=== PATIENT | male | born 1995 | race African-American/Black ===

== ENCOUNTER 2018-03-28 10:59 | Emergency (ER) | payer SELFPAY ==
--- NOTE | 2018-03-28 13:43 | EDPHYS ---
Physician Documentation [facility] Name: Luis Machado Age: 22 yrs Sex: Male : 1995 Arrival Date: 03/28/2018 Time: 11:01 Bed 12 Private MD: ED Physician Bandar Grimm HPI: 03/28 12:37 This 22 yrs old Black Male presents to ER via Ambulatory with complaints of Cough, kb Congestion. 12:37 The patient or guardian reports cough, that is intermittent, described as mild, with no kb sputum. Onset: The symptoms/episode began/occurred 3 day(s) ago. Severity of symptoms: At their worst the symptoms were mild, moderate, in the emergency department the symptoms are unchanged. Modifying factors: The symptoms are alleviated by nothing, the symptoms are aggravated by nothing. Associated signs and symptoms: Pertinent positives: rhinorrhea, Pertinent negatives: chest pain, diarrhea, ear ache, fever, nausea, sore throat, vomiting. The patient has not experienced similar symptoms in the past. The patient has not recently seen a physician. Historical: - Allergies: 11:18 No Known Allergies; aj1 - Home Meds: 11:18 None [Active]; aj1 - PMHx: 11:18 None; aj1 - PSHx: 11:18 None; aj1 - Immunization history:: Flu vaccine is not up to date. - Social history:: Smoking status: Patient/guardian denies using tobacco. - Ebola Screening: : Patient denies travel to an Ebola-affected area in the 21 days before illness onset. ROS: 12:37 Constitutional: Negative for fever, chills, and weight loss, Cardiovascular: Negative kb for chest pain, palpitations, and edema, Abdomen/GI: Negative for abdominal pain, nausea, vomiting, diarrhea, and constipation, Back: Negative for injury and pain, : Negative for injury, bleeding, discharge, and swelling, MS/Extremity: Negative for injury and deformity, Skin: Negative for injury, rash, and discoloration, Neuro: Negative for headache, weakness, numbness, tingling, and seizure. 12:37 ENT: Positive for rhinorrhea, sinus congestion. 12:37 Respiratory: Positive for cough, Negative for dyspnea on exertion, hemoptysis, orthopnea, pleurisy, shortness of breath, sputum production, wheezing. Exam: 12:37 Constitutional: This is a well developed, well nourished patient who is awake, alert, kb and in no acute distress. Head/Face: Normocephalic, atraumatic. ENT: Nares patent. No nasal discharge, no septal abnormalities noted. Tympanic membranes are normal and external auditory canals are clear. Oropharynx with no redness, swelling, or masses, exudates, or evidence of obstruction, uvula midline. Mucous membranes moist. Neck: Trachea midline, no thyromegaly or masses palpated, and no cervical lymphadenopathy. Supple, full range of motion without nuchal rigidity, or vertebral point tenderness. No Meningismus. Chest/axilla: Normal chest wall appearance and motion. Nontender with no deformity. No lesions are appreciated. Cardiovascular: Regular rate and rhythm with a normal S1 and S2. No gallops, murmurs, or rubs. Normal PMI, no JVD. No pulse deficits. Respiratory: Lungs have equal breath sounds bilaterally, clear to auscultation and percussion. No rales, rhonchi or wheezes noted. No increased work of breathing, no retractions or nasal flaring. Abdomen/GI: Soft, non-tender, with normal bowel sounds. No distension or tympany. No guarding or rebound. No evidence of tenderness throughout. Skin: Warm, dry with normal turgor. Normal color with no rashes, no lesions, and no evidence of cellulitis. MS/ Extremity: Pulses equal, no cyanosis. Neurovascular intact. Full, normal range of motion. Neuro: Awake and alert, GCS 15, oriented to person, place, time, and situation. Cranial nerves II-XII grossly intact. Motor strength 5/5 in all extremities. Sensory grossly intact. Cerebellar exam normal. Normal gait. Vital Signs: 11:18 BP 109 / 80; Pulse 78; Resp 18; Temp 97.3; Pulse Ox 100% on R/A; Weight 79.38 kg (R); aj1 Height 5 ft. 8 in. (172.72 cm) (R); Pain 0/10; 11:18 Body Mass Index 26.61 (79.38 kg, 172.72 cm) aj1 MDM: 11:20 Patient medically screened. kb 12:36 Data reviewed: vital signs, nurses notes. Data interpreted: Pulse oximetry: on room air kb is 100 %. Interpretation: normal. Counseling: I had a detailed discussion with the patient and/or guardian regarding: the historical points, exam findings, and any diagnostic results supporting the discharge/admit diagnosis, lab results, the need for outpatient follow up, a family practitioner, to return to the emergency department if symptoms worsen or persist or if there are any questions or concerns that arise at home. 03/28 11:20 Order name: Flu; Complete Time: 12:12 kb 03/28 11:20 Order name: Strep; Complete Time: 12:12 kb 03/28 12:09 Order name: Throat Culture EDMS Administered Medications: No medications were administered Disposition: 13:39 Co-signature as Attending Physician, Bandar Grimm MD. rn Disposition: 03/28/18 12:36 Discharged to Home. Impression: Acute upper respiratory infection, unspecified. - Condition is Stable. - Discharge Instructions: Upper Respiratory Infection, Adult, [id number]. - Medication Reconciliation Form, Thank You Letter, Antibiotic Education, Prescription Opioid Use form. - Follow up: Emergency Department; When: As needed; Reason: Worsening of condition. Follow up: Private Physician; When: 2 - 3 days; Reason: Recheck today's complaints, Continuance of care, Re-evaluation by your physician. Signatures: Dispatcher [employer] EDMS Kera Holcomb, ORACLE DATABASE MANAGER-C ORACLE DATABASE MANAGER-Glynnb Maribeth Barnett, RN RN aj1 Bandar Grimm MD MD rn Baxter, Heather, RN RN Corrections: (The following items were deleted from the chart) 12:55 12:36 03/28/2018 12:36 Discharged to Home. Impression: Acute upper respiratory hb infection, unspecified. Condition is Stable. Forms are Medication Reconciliation Form, Thank You Letter, Antibiotic Education, Prescription Opioid Use. Follow up: Emergency Department; When: As needed; Reason: Worsening of condition. Follow up: Private Physician; When: 2 - 3 days; Reason: Recheck today's complaints, Continuance of care, Re-evaluation by your physician. kb
--- NOTE | 2018-03-28 13:43 | ER ---
Nurse's Notes [facility] Name: Luis Machado Age: 22 yrs Sex: Male : 1995 Arrival Date: 03/28/2018 Time: 11:01 Bed 12 Private MD: Diagnosis: Acute upper respiratory infection, unspecified Presentation: 03/28 11:17 Presenting complaint: Patient states: For the past 3 days he has had cough and aj1 congestion. Reports that he wakes up sweating a lot, but has not checked his temperature. Transition of care: patient was not received from another setting of care. Onset of symptoms was March 25, 2018. Risk Assessment: Do you want to hurt yourself or someone else? Patient reports no desire to harm self or others. Initial Sepsis Screen: Does the patient meet any 2 criteria? No. Patient's initial sepsis screen is negative. Does the patient have a suspected source of infection? Yes: Productive cough/pneumonia. Care prior to arrival: None. 11:17 Method Of Arrival: Ambulatory aj1 11:17 Acuity: NOAH 4 aj1 Triage Assessment: 11:18 General: Appears in no apparent distress. comfortable, Behavior is calm, cooperative, aj1 appropriate for age. Pain: Denies pain. EENT: Reports nasal congestion nasal discharge. Neuro: Level of Consciousness is awake, alert, obeys commands. Cardiovascular: Patient's skin is warm and dry. Respiratory: Reports cough that is persistent Airway is compromised Respiratory effort is even, unlabored, Respiratory pattern is regular, symmetrical, Breath sounds are clear bilaterally. Historical: - Allergies: 11:18 No Known Allergies; aj1 - Home Meds: 11:18 None [Active]; aj1 - PMHx: 11:18 None; aj1 - PSHx: 11:18 None; aj1 - Immunization history:: Flu vaccine is not up to date. - Social history:: Smoking status: Patient/guardian denies using tobacco. - Ebola Screening: : Patient denies travel to an Ebola-affected area in the 21 days before illness onset. Screenin:58 Abuse screen: Denies threats or abuse. Denies injuries from another. Nutritional aj1 screening: No deficits noted. Tuberculosis screening: No symptoms or risk factors identified. Assessment: 11:58 General: Appears in no apparent distress. comfortable, Behavior is calm, cooperative, aj1 appropriate for age. Neuro: Level of Consciousness is awake, alert, obeys commands. Cardiovascular: Heart tones S1 S2 present Patient's skin is warm and dry. Respiratory: Reports cough that is persistent Airway is patent Respiratory effort is even, unlabored, Respiratory pattern is regular, symmetrical, Breath sounds are clear bilaterally. Denies shortness of breath. GI: No signs and/or symptoms were reported involving the gastrointestinal system. : No signs and/or symptoms were reported regarding the genitourinary system. EENT: No signs and/or symptoms were reported regarding the EENT system. Derm: No signs and/or symptoms reported regarding the dermatologic system. Skin is pink, warm \T\ dry. normal. Musculoskeletal: No signs and/or symptoms reported regarding the musculoskeletal system. Circulation, motion, and sensation intact. Vital Signs: 11:18 BP 109 / 80; Pulse 78; Resp 18; Temp 97.3; Pulse Ox 100% on R/A; Weight 79.38 kg (R); aj1 Height 5 ft. 8 in. (172.72 cm) (R); Pain 0/10; 11:18 Body Mass Index 26.61 (79.38 kg, 172.72 cm) aj ED Course: 11:01 Patient arrived in ED. as 11:10 [facility] Holcomb [facility]C [facility] kb 11:10 Bandar Grimm MD is Attending Physician. kb 11:18 Triage completed. aj1 11:18 Arm band placed on Patient placed in waiting room, Patient notified of wait time. aj1 11:58 Patient has correct armband on for positive identification. Bed in low position. Call aj1 light in reach. Side rails up X 1. 11:58 No provider procedures requiring assistance completed. Flu and/or RSV swab sent to lab. aj1 Strep swab sent to lab. 12:05 Elizabeth Marquis, RN is Primary Nurse. hb 12:55 Patient did not have IV access during this emergency room visit. hb Administered Medications: No medications were administered Outcome: 12:36 Discharge ordered by . kb 12:54 Discharged to home ambulatory, with family. hb 12:54 Condition: stable 12:54 Discharge instructions given to patient, family, Instructed on discharge instructions, follow up and referral plans. medication usage, Demonstrated understanding of instructions, follow-up care, medications. 12:55 Patient left the ED. hb Signatures: Kera Holcomb, ADELEC SARAH-Maribeth Morales RN RN aj1 Fabby Medina as Elizabeth Marquis, RN RN hb
== END 2018-03-28 12:55 | disposition home or self-care (01) ==
LOC: ER 10:59
DX: J06.9 Acute upper respiratory infection, unspecified (principal)
CPT/HCPCS: 87070; 87081; 87804; 99283

== ENCOUNTER 2019-02-21 08:11 | Emergency (ER) | payer SELFPAY ==
--- NOTE | 2019-02-21 09:08 | EDPHYS ---
Physician Documentation [facility] Name: Luis Machado Age: 23 yrs Sex: Male : 1995 Arrival Date: 02/21/2019 Time: 08:14 Bed 20 Private MD: ED Physician Puneet Aleman HPI: 02/21 09:13 This 23 yrs old Black Male presents to ER via Ambulatory with complaints of Toothache. snw 09:13 The patient presents with pain. The problem is located in the upper right first molar snw (#3). Onset: The symptoms/episode began/occurred gradually, 2 week(s) ago, and became worse and became persistent. Duration: The symptoms are continuous, and are steadily getting worse. Associated signs and symptoms: The patient has no apparent associated signs or symptoms. Severity of symptoms: At their worst the symptoms were moderate. It is unknown whether or not the patient has had similar symptoms in the past. The patient has not recently seen a physician. Historical: - Allergies: 08:24 No Known Allergies; aa5 - Home Meds: 08:24 None [Active]; aa5 - PMHx: 08:24 None; aa5 - PSHx: 08:24 None; aa5 - Immunization history:: Adult Immunizations up to date. - Social history:: Smoking status: Patient/guardian denies using tobacco. - Ebola Screening: : No symptoms or risks identified at this time. ROS: 09:13 Constitutional: Negative for fever, chills, and weight loss, Eyes: Negative for injury, snw pain, redness, and discharge, Neck: Negative for injury, pain, and swelling, Cardiovascular: Negative for chest pain, palpitations, and edema, Respiratory: Negative for shortness of breath, cough, wheezing, and pleuritic chest pain, Abdomen/GI: Negative for abdominal pain, nausea, vomiting, diarrhea, and constipation, Back: Negative for injury and pain, : Negative for injury, bleeding, discharge, and swelling, MS/Extremity: Negative for injury and deformity, Skin: Negative for injury, rash, and discoloration, Neuro: Negative for headache, weakness, numbness, tingling, and seizure, Psych: Negative for depression, anxiety, suicide ideation, homicidal ideation, and hallucinations. 09:13 ENT: Positive for dental pain. Exam: 09:12 Constitutional: This is a well developed, well nourished patient who is awake, alert, snw and in no acute distress. Head/Face: Normocephalic, atraumatic. Eyes: Pupils equal round and reactive to light, extra-ocular motions intact. Lids and lashes normal. Conjunctiva and sclera are non-icteric and not injected. Cornea within normal limits. Periorbital areas with no swelling, redness, or edema. Neck: Trachea midline, no thyromegaly or masses palpated, and no cervical lymphadenopathy. Supple, full range of motion without nuchal rigidity, or vertebral point tenderness. No Meningismus. Chest/axilla: Normal chest wall appearance and motion. Nontender with no deformity. No lesions are appreciated. Cardiovascular: Regular rate and rhythm with a normal S1 and S2. No gallops, murmurs, or rubs. Normal PMI, no JVD. No pulse deficits. Respiratory: Lungs have equal breath sounds bilaterally, clear to auscultation and percussion. No rales, rhonchi or wheezes noted. No increased work of breathing, no retractions or nasal flaring. Abdomen/GI: Soft, non-tender, with normal bowel sounds. No distension or tympany. No guarding or rebound. No evidence of tenderness throughout. Back: No spinal tenderness. No costovertebral tenderness. Full range of motion. Skin: Warm, dry with normal turgor. Normal color with no rashes, no lesions, and no evidence of cellulitis. MS/ Extremity: Pulses equal, no cyanosis. Neurovascular intact. Full, normal range of motion. Neuro: Awake and alert, GCS 15, oriented to person, place, time, and situation. Cranial nerves II-XII grossly intact. Motor strength 5/5 in all extremities. Sensory grossly intact. Cerebellar exam normal. Normal gait. Psych: Awake, alert, with orientation to person, place and time. Behavior, mood, and affect are within normal limits. 09:12 ENT: External ear(s): are unremarkable, Ear canal(s): are normal, TM's: are normal, Nose: is normal, Mouth: is normal, Posterior pharynx: is normal, Dental exam: pain, that is moderate, specifically in the upper right first molar (#3). Vital Signs: 08:25 BP 140 / 95; Pulse 75; Resp 16 S; Temp 98.5(O); Pulse Ox 96% on R/A; Weight 77.11 kg aa5 (R); Height 5 ft. 8 in. (172.72 cm) (R); Pain 8/10; 08:25 Body Mass Index 25.85 (77.11 kg, 172.72 cm) aa5 MDM: 08:55 Patient medically screened. snw 09:08 Data reviewed: vital signs, nurses notes. Data interpreted: Pulse oximetry: on room air snw is 96 %. Interpretation: normal. Counseling: I had a detailed discussion with the patient and/or guardian regarding: the historical points, exam findings, and any diagnostic results supporting the discharge/admit diagnosis, the presence of at least one elevated blood pressure reading (>120/80) during this emergency department visit, the need for outpatient follow up, to return to the emergency department if symptoms worsen or persist or if there are any questions or concerns that arise at home. Special discussion: I have referred the patient to see his PCP for further evaluation of high blood pressure. Based on the history and exam findings, there is no indication for further emergent testing or inpatient evaluation. I discussed with the patient/guardian the need to see a dentist for further evaluation of the symptoms. Administered Medications: 09:19 Drug: Augmentin 875 mg Route: PO; aa5 09:48 Follow up: Response: No adverse reaction aa5 Disposition: 13:29 Co-signature as Attending Physician, Puneet Aleman MD I agree with the assessment and kdr plan of care. Disposition: 02/21/19 09:07 Discharged to Home. Impression: Periapical abscess without sinus. - Condition is Stable. - Discharge Instructions: Dental Pain, Root Canal, Diet and Dental Disease. - Prescriptions for Augmentin 875- 125 mg Oral Tablet - take 1 tablet by ORAL route every 12 hours for 10 days; 20 tablet. Tylenol- Codeine #3 300-30 mg Oral Tablet - take 2 tablets by ORAL route every 6 hours As needed; 18 tablet. - Medication Reconciliation Form, Thank You Letter, Antibiotic Education, Prescription Opioid Use form. - Follow up: Emergency Department; When: As needed; Reason: Worsening of condition. Follow up: Private Physician; When: 2 - 3 days; Reason: Recheck today's complaints, Continuance of care, Re-evaluation by your physician. Signatures: Puneet Aleman MD MD [facility] Jess Alexander, FERMENTATION SCIENTIST-C FERMENTATION SCIENTIST-Csnw Gladys De Oliveira, RN RN aa5 Corrections: (The following items were deleted from the chart) 09:51 09:07 02/21/2019 09:07 Discharged to Home. Impression: Periapical abscess without aa5 sinus. Condition is Stable. Forms are Medication Reconciliation Form, Thank You Letter, Antibiotic Education, Prescription Opioid Use. Follow up: Emergency Department; When: As needed; Reason: Worsening of condition. Follow up: Private Physician; When: 2 - 3 days; Reason: Recheck today's complaints, Continuance of care, Re-evaluation by your physician. snw
--- NOTE | 2019-02-21 09:08 | ER ---
Nurse's Notes [facility] Name: Luis Machado Age: 23 yrs Sex: Male : 1995 Arrival Date: 02/21/2019 Time: 08:14 Bed 20 Private MD: Diagnosis: Periapical abscess without sinus Presentation: 02/21 08:22 Presenting complaint: Patient states: toothache (upper right second bicuspid) x 1 week aa5 ago. 08:22 Transition of care: patient was not received from another setting of care. Onset of aa5 symptoms was February 2019. Risk Assessment: Do you want to hurt yourself or someone else? Patient reports no desire to harm self or others. Initial Sepsis Screen: Does the patient meet any 2 criteria? No. Patient's initial sepsis screen is negative. Does the patient have a suspected source of infection? No. Patient's initial sepsis screen is negative. Care prior to arrival: None. 08:22 Acuity: NOAH 5 aa5 08:22 Method Of Arrival: Ambulatory aa5 Triage Assessment: 08:25 EENT: Reports pain in upper right second bicuspid. aa5 08:25 General: Appears comfortable. aa5 Historical: - Allergies: 08:24 No Known Allergies; aa5 - Home Meds: 08:24 None [Active]; aa5 - PMHx: 08:24 None; aa5 - PSHx: 08:24 None; aa5 - Immunization history:: Adult Immunizations up to date. - Social history:: Smoking status: Patient/guardian denies using tobacco. - Ebola Screening: : No symptoms or risks identified at this time. Screenin:25 Abuse screen: Denies threats or abuse. Nutritional screening: No deficits noted. aa5 Tuberculosis screening: No symptoms or risk factors identified. Fall Risk None identified. Assessment: 08:25 General: Appears comfortable, Behavior is calm, cooperative. Pain: Complains of pain in aa5 upper right second bicuspid Pain does not radiate. Pain currently is 8 out of 10 on a pain scale. Quality of pain is described as aching, throbbing, Pain began 1 week ago Is continuous. Neuro: Level of Consciousness is awake, alert, obeys commands, Oriented to person, place, time, situation. Cardiovascular: Patient's skin is warm and dry. Respiratory: Airway is patent Respiratory effort is even, unlabored, Respiratory pattern is regular, symmetrical. GI: No signs and/or symptoms were reported involving the gastrointestinal system. : No signs and/or symptoms were reported regarding the genitourinary system. EENT: Oral mucosa is moist. Dental caries noted in upper right second bicuspid (#4). Derm: Skin is dry, Skin is normal, Skin temperature is warm. Musculoskeletal: Range of motion: intact in all extremities. 09:48 Neuro: Level of Consciousness is awake, alert, obeys commands, Oriented to person, aa5 place, time, situation. Respiratory: Airway is patent Respiratory effort is even, unlabored, Respiratory pattern is regular, symmetrical. Derm: Skin is dry, Skin is normal, Skin temperature is warm. Vital Signs: 08:25 BP 140 / 95; Pulse 75; Resp 16 S; Temp 98.5(O); Pulse Ox 96% on R/A; Weight 77.11 kg aa5 (R); Height 5 ft. 8 in. (172.72 cm) (R); Pain 8/10; 08:25 Body Mass Index 25.85 (77.11 kg, 172.72 cm) aa5 ED Course: 08:14 Patient arrived in ED. as 08:22 Gladys De Oliveira, RN is Primary Nurse. aa5 08:22 Arm band placed on Patient placed in an exam room, on a stretcher. aa5 08:22 Patient has correct armband on for positive identification. Bed in low position. Call aa5 light in reach. Side rails up X 1. 08:30 Triage completed. aa5 08:53 [facility]C [facility] snw 08:53 Puneet Aleman MD is Attending Physician. snw 09:48 No provider procedures requiring assistance completed. Patient did not have IV access aa5 during this emergency room visit. Administered Medications: 09:19 Drug: Augmentin 875 mg Route: PO; aa5 09:48 Follow up: Response: No adverse reaction aa5 Outcome: 09:07 Discharge ordered by . snw 09:48 Discharged to home ambulatory. aa5 09:48 Condition: stable 09:48 Discharge instructions given to patient, Instructed on discharge instructions, follow up and referral plans. medication usage, Demonstrated understanding of instructions, follow-up care, medications, Prescriptions given X 2. 09:51 Patient left the ED. aa5 Signatures: Jess Alexander, FAMILY PROGRAM SPECIALIST-C FAMILY PROGRAM SPECIALIST-Csnw Fabby Medina Audri, RN RN aa5 Corrections: (The following items were deleted from the chart) 08:29 08:20 Arm band placed on Patient placed in an exam room, on a stretcher, aa5 aa5 08:36 08:22 Presenting complaint: Patient states: toothache x 1 week ago aa5 aa5
[2019-02-21] MEDS ORDERED: AMOX/K CLAV 875 MG TAB ONE (09:17)
[2019-02-21 10:18] VITALS: BP 140/95; TEMP 98.5; O2SAT 96
== END 2019-02-21 09:51 | disposition home or self-care (01) ==
LOC: ER 08:11
DX: K04.7 Periapical abscess without sinus (principal)
CPT/HCPCS: 99283

== ENCOUNTER 2019-06-20 13:51 | Emergency (ER) | payer SELFPAY ==
--- NOTE | 2019-06-20 15:57 | ER ---
Nurse's Notes [facility] Name: Luis Machado Age: 23 yrs Sex: Male : 1995 Arrival Date: 06/20/2019 Time: 13:53 Bed 10 Private MD: None, None Diagnosis: Acute pharyngitis;Acute bronchitis Presentation: 06/20 14:01 Presenting complaint: Patient states: "For like a week I've been having bad coughs, and aj1 I've been really cold and I've taken everything I can take but its not working" Denies fever. Transition of care: patient was not received from another setting of care. Onset of symptoms was 2019. Risk Assessment: Do you want to hurt yourself or someone else? Patient reports no desire to harm self or others. Initial Sepsis Screen: Does the patient meet any 2 criteria? No. Patient's initial sepsis screen is negative. Does the patient have a suspected source of infection? Yes: Productive cough/pneumonia. Care prior to arrival: None. 14:01 Method Of Arrival: Ambulatory aj 14:01 Acuity: NOAH 4 aj1 Triage Assessment: 14:03 General: Appears in no apparent distress. comfortable, Behavior is calm, cooperative, aj1 appropriate for age. Pain: Denies pain. Neuro: Level of Consciousness is awake, alert, obeys commands. Cardiovascular: Patient's skin is warm and dry. Respiratory: Airway is patent Respiratory effort is even, unlabored, Respiratory pattern is regular, symmetrical. Historical: - Allergies: 14:03 No Known Allergies; aj1 - Home Meds: 14:03 None [Active]; aj1 - PMHx: 14:03 None; aj1 - PSHx: 14:03 None; aj1 - Immunization history:: Flu vaccine is not up to date. - Social history:: Smoking status: Patient uses tobacco products, denies chronic smoking, but will smoke occasionally. - Ebola Screening: : Patient denies travel to an Ebola-affected area in the 21 days before illness onset. Screenin:46 Abuse screen: Denies threats or abuse. Denies injuries from another. Nutritional hb screening: No deficits noted. Tuberculosis screening: No symptoms or risk factors identified. Fall Risk None identified. Assessment: 15:46 General: Appears in no apparent distress. Behavior is calm, cooperative. Pain: Denies hb pain. Neuro: Level of Consciousness is awake, alert, obeys commands, Oriented to person, place, time, situation. Cardiovascular: Capillary refill < 3 seconds Patient's skin is warm and dry. Respiratory: Reports cough that is non-productive, Airway is patent Respiratory effort is even, unlabored, Respiratory pattern is regular, symmetrical. GI: No signs and/or symptoms were reported involving the gastrointestinal system. : No signs and/or symptoms were reported regarding the genitourinary system. EENT: No signs and/or symptoms were reported regarding the EENT system. Derm: Skin is pink, warm \\T\\ dry. Musculoskeletal: No signs and/or symptoms reported regarding the musculoskeletal system. Vital Signs: 14:03 BP 131 / 88; Pulse 77; Resp 18; Temp 98.0; Pulse Ox 99% on R/A; Weight 81.65 kg (R); aj1 Height 5 ft. 8 in. (172.72 cm) (R); Pain 0/10; 14:03 Body Mass Index 27.37 (81.65 kg, 172.72 cm) aj1 ED Course: 13:53 Patient arrived in ED. mr 13:53 None, None is Private Physician. mr 14:03 Triage completed. aj1 14:03 Arm band placed on Patient placed in waiting room, Patient notified of wait time. aj1 14:31 Jess Alexander FNP-C is PHCP. snw 14:31 Stephon Nathan MD is Attending Physician. snw 15:08 Chest Pa And Lat (2 Views) XRAY In Process Unspecified. EDMS 15:45 Elizabeth Marquis, RN is Primary Nurse. hb 15:48 Patient has correct armband on for positive identification. Call light in reach. hb 16:21 No provider procedures requiring assistance completed. Patient did not have IV access hb during this emergency room visit. Administered Medications: 16:20 Drug: Zithromax 500 mg Route: PO; hb 16:20 Follow up: Response: Medication administered at discharge. hb 16:20 Drug: predniSONE 40 mg Route: PO; hb 16:20 Follow up: Response: Medication administered at discharge. hb 16:20 Drug: Pepcid 20 mg Route: PO; hb 16:20 Follow up: Response: Medication administered at discharge. hb Outcome: 15:57 Discharge ordered by MD. price 16:21 Discharged to home ambulatory. hb 16:21 Condition: stable 16:21 Discharge instructions given to patient, Instructed on discharge instructions, follow up and referral plans. medication usage, Demonstrated understanding of instructions, follow-up care, medications, Prescriptions given X 3. 16:22 Patient left the ED. hb Signatures: Dispatcher [employer] EDMaribeth Singleton RN RN aj1 Jess Alexander, INSTRUCTOR OF SOCIOLOGY-C INSTRUCTOR OF SOCIOLOGY-Ariadna Jenkins Heather, RN RN hb
--- NOTE | 2019-06-20 15:58 | EDPHYS ---
Physician Documentation [facility] Name: Luis Machado Age: 23 yrs Sex: Male : 1995 Arrival Date: 06/20/2019 Time: 13:53 Bed 10 Private MD: None, None ED Physician Stephon Nathan HPI: 06/20 16:12 This 23 yrs old Black Male presents to ER via Ambulatory with complaints of Cough. snw 16:12 The patient or guardian reports cough, described as moderate. Onset: The snw symptoms/episode began/occurred suddenly, 1 week(s) ago, and became persistent. Severity of symptoms: At their worst the symptoms were moderate. Associated signs and symptoms: Pertinent positives: fever, sore throat. It is unknown whether or not the patient has had similar symptoms in the past. The patient has not recently seen a physician. Historical: - Allergies: 14:03 No Known Allergies; aj1 - Home Meds: 14:03 None [Active]; aj1 - PMHx: 14:03 None; aj1 - PSHx: 14:03 None; aj1 - Immunization history:: Flu vaccine is not up to date. - Social history:: Smoking status: Patient uses tobacco products, denies chronic smoking, but will smoke occasionally. - Ebola Screening: : Patient denies travel to an Ebola-affected area in the 21 days before illness onset. ROS: 15:52 Constitutional: Negative for fever, chills, and weight loss, Eyes: Negative for injury, snw pain, redness, and discharge, ENT: Negative for injury, pain, and discharge, Neck: Negative for injury, pain, and swelling, Cardiovascular: Negative for chest pain, palpitations, and edema, Abdomen/GI: Negative for abdominal pain, nausea, vomiting, diarrhea, and constipation, Back: Negative for injury and pain, : Negative for injury, bleeding, discharge, and swelling, MS/Extremity: Negative for injury and deformity, Skin: Negative for injury, rash, and discoloration, Neuro: Negative for headache, weakness, numbness, tingling, and seizure, Psych: Negative for depression, anxiety, suicide ideation, homicidal ideation, and hallucinations. 15:52 Respiratory: Positive for cough, with green sputum. Exam: 15:51 Constitutional: This is a well developed, well nourished patient who is awake, alert, snw and in no acute distress. Head/Face: Normocephalic, atraumatic. Eyes: Pupils equal round and reactive to light, extra-ocular motions intact. Lids and lashes normal. Conjunctiva and sclera are non-icteric and not injected. Cornea within normal limits. Periorbital areas with no swelling, redness, or edema. Neck: Trachea midline, no thyromegaly or masses palpated, and no cervical lymphadenopathy. Supple, full range of motion without nuchal rigidity, or vertebral point tenderness. No Meningismus. Chest/axilla: Normal chest wall appearance and motion. Nontender with no deformity. No lesions are appreciated. Cardiovascular: Regular rate and rhythm with a normal S1 and S2. No gallops, murmurs, or rubs. Normal PMI, no JVD. No pulse deficits. Respiratory: Lungs have equal breath sounds bilaterally, clear to auscultation and percussion. No rales, rhonchi or wheezes noted. No increased work of breathing, no retractions or nasal flaring. Abdomen/GI: Soft, non-tender, with normal bowel sounds. No distension or tympany. No guarding or rebound. No evidence of tenderness throughout. Back: No spinal tenderness. No costovertebral tenderness. Full range of motion. Skin: Warm, dry with normal turgor. Normal color with no rashes, no lesions, and no evidence of cellulitis. MS/ Extremity: Pulses equal, no cyanosis. Neurovascular intact. Full, normal range of motion. Neuro: Awake and alert, GCS 15, oriented to person, place, time, and situation. Cranial nerves II-XII grossly intact. Motor strength 5/5 in all extremities. Sensory grossly intact. Cerebellar exam normal. Normal gait. Psych: Awake, alert, with orientation to person, place and time. Behavior, mood, and affect are within normal limits. 15:51 ENT: External ear(s): are unremarkable, Ear canal(s): are normal, TM's: erythema, that is mild, on the left, Nose: is normal, Mouth: is normal, Posterior pharynx: erythema, that is moderate, Voice: is normal. Vital Signs: 14:03 BP 131 / 88; Pulse 77; Resp 18; Temp 98.0; Pulse Ox 99% on R/A; Weight 81.65 kg (R); aj1 Height 5 ft. 8 in. (172.72 cm) (R); Pain 0/10; 14:03 Body Mass Index 27.37 (81.65 kg, 172.72 cm) aj1 MDM: 15:33 Patient medically screened. snw 16:12 Data reviewed: vital signs, nurses notes. snw 06/20 14:30 Order name: Chest Pa And Lat (2 Views) XRAY snw Administered Medications: 16:20 Drug: Zithromax 500 mg Route: PO; hb 16:20 Follow up: Response: Medication administered at discharge. hb 16:20 Drug: predniSONE 40 mg Route: PO; hb 16:20 Follow up: Response: Medication administered at discharge. hb 16:20 Drug: Pepcid 20 mg Route: PO; hb 16:20 Follow up: Response: Medication administered at discharge. hb Disposition: 20:42 Co-signature as Attending Physician, Stephon Nathan MD I agree with the assessment and titi plan of care. Disposition: 06/20/19 15:57 Discharged to Home. Impression: Acute pharyngitis, Acute bronchitis. - Condition is Stable. - Discharge Instructions: Acute Bronchitis, Adult, Fever, Adult, Pharyngitis, Cough, Adult, Rehydration, Adult. - Prescriptions for Prednisone 20 mg Oral Tablet - take 2 tablet by ORAL route once daily for 5 days; 10 tablet. Pepcid 20 mg Oral Tablet - take 1 tablet by ORAL route once daily; 20 tablet. Zithromax 500 mg Oral Tablet - take 1 tablet by ORAL route once daily for 5 days; 5 tablet. - Work release form, Medication Reconciliation Form, Thank You Letter, Antibiotic Education, Prescription Opioid Use form. - Follow up: Private Physician; When: 2 - 3 days; Reason: Recheck today's complaints, Continuance of care, Re-evaluation by your physician. Follow up: Emergency Department; When: As needed; Reason: Worsening of condition. Signatures: Dispatcher [employer] Maribeth Hoang RN RN aj1 Stephon Nathan MD MD cha Therrien, Shelly, AMMONIA TECHNICIAN-C AMMONIA TECHNICIAN-Csnw Elizabeth Marquis RN RN Corrections: (The following items were deleted from the chart) 16:22 15:57 06/20/2019 15:57 Discharged to Home. Impression: Acute pharyngitis; Acute hb bronchitis. Condition is Stable. Forms are Medication Reconciliation Form, Thank You Letter, Antibiotic Education, Prescription Opioid Use. Follow up: Private Physician; When: 2 - 3 days; Reason: Recheck today's complaints, Continuance of care, Re-evaluation by your physician. Follow up: Emergency Department; When: As needed; Reason: Worsening of condition. snw
[2019-06-20] MEDS ORDERED: AZITHROMYCIN 250 MG TAB ONE (16:03)
[2019-06-20] MEDS ORDERED: predniSONE 20 MG TAB ONE (16:03)
[2019-06-20] MEDS ORDERED: FAMOTIDINE 20 MG TAB ONE (16:03)
--- NOTE | 2019-06-20 16:28 | RAD REPORT ---
EXAM DESCRIPTION: RAD - Chest Pa And Lat (2 Views) - 06/20/2019 3:07 pm CLINICAL HISTORY: COUGH COMPARISON: No comparisons TECHNIQUE: Frontal and lateral views of the chest were obtained. FINDINGS: The lungs are clear of focal mass or consolidation. Lung volumes are relatively low which accentuates interstitial pattern. Significant failure or volume overload not suspected. A minimal int erstitial edema or infiltrate could be masked. Heart size is normal and central vasculature is with in normal limits. No pleural effusion or pneumothorax seen. No acute bony finding noted. No aortic abnormality. IMPRESSION: No focal mass or consolidation. Shallow inspiration accentuates lung markings potentially masking minimal edema or infiltrate.
[2019-06-20 16:43] VITALS: BP 131/88; TEMP 98; O2SAT 99
== END 2019-06-20 16:22 | disposition home or self-care (01) ==
LOC: ER 13:51
DX: J20.9 Acute bronchitis, unspecified (principal); Z72.0 Tobacco use
CPT/HCPCS: 71046; 99283; J7512

== ENCOUNTER 2019-09-10 | Emergency (ER) | payer SELFPAY | END 2019-09-10 19:56 | disposition home or self-care (01) | CPT/HCPCS: 99281 ==

== ENCOUNTER 2020-06-14 10:20 | Emergency (ER) | payer OTHER, SELFPAY ==
--- NOTE | 2020-06-14 11:04 | EDPHYS ---
Physician Documentation [facility] Name: Luis Machado Age: 24 yrs Sex: Male : 1995 Arrival Date: 06/14/2020 Time: 10:27 Bed Waiting Private MD: ED Physician Puneet Aleman HPI: 06/14 12:41 This 24 yrs old Black Male presents to ER via Ambulatory with complaints of Toothache. kb 12:41 The patient presents with broken tooth/teeth, pain, redness, swelling. The problem is kb located in the upper right first bicuspid (#5). Onset: The symptoms/episode began/occurred 1 week(s) ago. Duration: The symptoms are continuous. Modifying factors: The symptoms are alleviated by nothing, the symptoms are aggravated by nothing. Associated signs and symptoms: Pertinent positives: pain, redness in area, swelling. Severity of symptoms: At their worst the symptoms were moderate, in the emergency department the symptoms are unchanged. The patient has not experienced similar symptoms in the past. The patient has not recently seen a physician. Historical: - Allergies: : No Known Allergies; ss - Home Meds: : None [Active]; ss - PMHx: : None; ss - PSHx: 11: None; ss - Immunization history:: Adult Immunizations up to date. - Social history:: Smoking status: Patient denies any tobacco usage or history of. ROS: 12:40 Constitutional: Negative for fever, chills, and weight loss, Cardiovascular: Negative kb for chest pain, palpitations, and edema, Respiratory: Negative for shortness of breath, cough, wheezing, and pleuritic chest pain, Abdomen/GI: Negative for abdominal pain, nausea, vomiting, diarrhea, and constipation, MS/Extremity: Negative for injury and deformity, Skin: Negative for injury, rash, and discoloration, Neuro: Negative for headache, weakness, numbness, tingling, and seizure. 12:40 ENT: Positive for dental pain. Exam: 12:41 Constitutional: This is a well developed, well nourished patient who is awake, alert, kb and in no acute distress. Head/Face: Normocephalic, atraumatic. Chest/axilla: Normal chest wall appearance and motion. Nontender with no deformity. No lesions are appreciated. Cardiovascular: Regular rate and rhythm with a normal S1 and S2. No gallops, murmurs, or rubs. Normal PMI, no JVD. No pulse deficits. Respiratory: Lungs have equal breath sounds bilaterally, clear to auscultation and percussion. No rales, rhonchi or wheezes noted. No increased work of breathing, no retractions or nasal flaring. Abdomen/GI: Soft, non-tender, with normal bowel sounds. No distension or tympany. No guarding or rebound. No evidence of tenderness throughout. Skin: Warm, dry with normal turgor. Normal color with no rashes, no lesions, and no evidence of cellulitis. MS/ Extremity: Pulses equal, no cyanosis. Neurovascular intact. Full, normal range of motion. Neuro: Awake and alert, GCS 15, oriented to person, place, time, and situation. Cranial nerves II-XII grossly intact. Motor strength 5/5 in all extremities. Sensory grossly intact. Cerebellar exam normal. Normal gait. 12:41 ENT: Dental exam: fractured teeth are noted, specifically the upper right first bicuspid (#5), gum swelling, that is mild, pain, that is moderate, specifically in the upper right first bicuspid (#5). Vital Signs: 10:59 BP 133 / 84; Pulse 64; Resp 14; Temp 97.2(TE); Pulse Ox 99% ; Weight 75.75 kg; Height 5 ss ft. 8 in. (172.72 cm); Pain 9/10; 10:59 Body Mass Index 25.39 (75.75 kg, 172.72 cm) ss MDM: 11:02 Patient medically screened. kb 12:39 Data reviewed: vital signs, nurses notes. Data interpreted: Pulse oximetry: on room air kb is 99 %. Interpretation: normal. Counseling: I had a detailed discussion with the patient and/or guardian regarding: the historical points, exam findings, and any diagnostic results supporting the discharge/admit diagnosis, the need for outpatient follow up, a dentist, to return to the emergency department if symptoms worsen or persist or if there are any questions or concerns that arise at home. Administered Medications: 11:07 Drug: Augmentin 875 mg Route: PO; ss 11:12 Follow up: Response: Medication administered at discharge. ss 11:08 Drug: [place] (7.5 mg-325 mg) 1 tabs Route: PO; ss 11:12 Follow up: Response: Medication administered at discharge. Disposition: 06/15 07:26 Co-signature as Attending Physician, Puneet Alemna MD I agree with the assessment and kdr plan of care. Disposition: 06/14/20 11:03 Discharged to Home. Impression: Periapical abscess without sinus. - Condition is Stable. - Discharge Instructions: Dental Pain, [id number], Dental Abscess, [id number]. - Prescriptions for Augmentin 875- 125 mg Oral Tablet - take 1 tablet by ORAL route every 12 hours for 10 days; 20 tablet. Ibuprofen 800 mg Oral Tablet - take 1 tablet by ORAL route every 8 hours As needed take with food; 30 tablet. - Medication Reconciliation Form, Thank You Letter, Antibiotic Education, Prescription Opioid Use, Work release form form. - Follow up: Emergency Department; When: As needed; Reason: Worsening of condition. Follow up: Private Physician; When: 2 - 3 days; Reason: Recheck today's complaints, Continuance of care, Re-evaluation by your physician. Signatures: Kera Holcomb, INTERACTIVE MEDIA DESIGNER-C INTERACTIVE MEDIA DESIGNER-Ckb Puneet Aleman MD MD [facility] Renee Qureshi, SEEMA RN ss Corrections: (The following items were deleted from the chart) 06/14 11:15 11:03 06/14/2020 11:03 Discharged to Home. Impression: Periapical abscess without ss sinus. Condition is Stable. Forms are Medication Reconciliation Form, Thank You Letter, Antibiotic Education, Prescription Opioid Use. Follow up: Emergency Department; When: As needed; Reason: Worsening of condition. Follow up: Private Physician; When: 2 - 3 days; Reason: Recheck today's complaints, Continuance of care, Re-evaluation by your physician. kb
--- NOTE | 2020-06-14 11:04 | ER ---
Nurse's Notes [facility] Name: Luis Machado Age: 24 yrs Sex: Male : 1995 Arrival Date: 06/14/2020 Time: 10:27 Bed Waiting [facility] MD: Diagnosis: Periapical abscess without sinus Presentation: 06/14 10:59 Chief complaint: Patient states: dental pain that began 2 weeks ago. Coronavirus ss screen: Client denies travel out of the [place] in the last 14 days. Ebola Screen: Patient denies exposure to infectious person. Patient denies travel to an Ebola-affected area in the 21 days before illness onset. Initial Sepsis Screen: Does the patient meet any 2 criteria? No. Patient's initial sepsis screen is negative. Does the patient have a suspected source of infection? No. Patient's initial sepsis screen is negative. Risk Assessment: Do you want to hurt yourself or someone else? Patient reports no desire to harm self or others. Onset of symptoms was May 2020. 10:59 Method Of Arrival: Ambulatory ss 10:59 Acuity: NOAH 5 ss Historical: - Allergies: 11: No Known Allergies; ss - Home Meds: 11: None [Active]; ss - PMHx: 11: None; ss - PSHx: 11: None; ss - Immunization history:: Adult Immunizations up to date. - Social history:: Smoking status: Patient denies any tobacco usage or history of. Screenin:01 Abuse screen: Denies threats or abuse. Denies injuries from another. Nutritional ss screening: No deficits noted. Tuberculosis screening: Never had TB. Fall Risk None identified. Assessment: 11:01 General: Appears in no apparent distress. Behavior is calm, cooperative, quiet. Pain: ss Complains of pain in right buccal mucosa Pain currently is 9 out of 10 on a pain scale. Quality of pain is described as aching, tender. Neuro: Level of Consciousness is awake, alert, obeys commands, Oriented to person, place, time, situation. Cardiovascular: Capillary refill < 3 seconds is brisk. Respiratory: Airway is patent Respiratory effort is even, unlabored, Respiratory pattern is regular, symmetrical. GI: No signs and/or symptoms were reported involving the gastrointestinal system. EENT: Nares are clear Oral mucosa is moist. Derm: Skin is intact, is healthy with good turgor, Skin is pink, warm \T\ dry. normal. Musculoskeletal: Circulation, motion, and sensation intact. Range of motion: Swelling present in right buccal mucosa. Vital Signs: 10:59 BP 133 / 84; Pulse 64; Resp 14; Temp 97.2(TE); Pulse Ox 99% ; Weight 75.75 kg; Height 5 ss ft. 8 in. (172.72 cm); Pain 9/10; 10:59 Body Mass Index 25.39 (75.75 kg, 172.72 cm) ss ED Course: 10:27 Patient arrived in ED. ds1 11:00 Triage completed. ss 11:01 Arm band placed on left wrist. ss 11:01 Patient has correct armband on for positive identification. ss 11:02 Kera Holcomb FNP-C [facility]. kb 11:02 Puneet Aleman MD is Attending Physician. kb 11:03 No provider procedures requiring assistance completed. Patient did not have IV access ss during this emergency room visit. Administered Medications: 11:07 Drug: Augmentin 875 mg Route: PO; ss 11:12 Follow up: Response: Medication administered at discharge. ss 11:08 Drug: [place] (7.5 mg-325 mg) 1 tabs Route: PO; ss 11:12 Follow up: Response: Medication administered at discharge. ss Outcome: 11:03 Discharge ordered by . kb 11:15 Discharged to home ambulatory. ss 11:15 Condition: good 11:15 Discharge instructions given to patient, Instructed on discharge instructions, follow up and referral plans. medication usage, Demonstrated understanding of instructions, follow-up care, medications, Prescriptions given X 2. 11:15 Patient left the ED. ss Signatures: Kera Holcomb FNP-C FNP-Ckb [place], Demi ds1 Renee Qureshi, RN RN ss
[2020-06-14] MEDS ORDERED: HYDROCODONE/APAP 7.5/325 MG TAB ONE (11:20)
[2020-06-14] MEDS ORDERED: AMOX/K CLAV 875 MG TAB ONE (11:21)
[2020-06-14 11:27] VITALS: BP 133/84; TEMP 97.2; O2SAT 99
== END 2020-06-14 11:15 | disposition home or self-care (01) ==
LOC: ER 10:20
DX: K04.7 Periapical abscess without sinus (principal)
CPT/HCPCS: 99283

== ENCOUNTER 2020-10-11 06:29 | Emergency (ER) | payer OTHER ==
--- NOTE | 2020-10-11 08:04 | ER ---
Nurse's Notes [facility] Name: Luis Machado Age: 24 yrs Sex: Male : 1995 Arrival Date: 10/11/2020 Time: 06:33 Bed 5 Private MD: Diagnosis: Low back pain Presentation: 10/11 06:52 Chief complaint: Patient states: Reports gradual increasing back pain from work, lp1 reports being evaluated at [place] [facility] 4 days ago and given medication prescriptions that are helping, however patient concerned there was no imaging done with previous ER visit. Coronavirus screen: Client denies travel out of the [place] in the last 14 days. At this time, the client does not indicate any symptoms associated with coronavirus-19. Ebola Screen: No symptoms or risks identified at this time. Initial Sepsis Screen: Does the patient meet any 2 criteria? No. Patient's initial sepsis screen is negative. Does the patient have a suspected source of infection? No. Patient's initial sepsis screen is negative. Risk Assessment: Do you want to hurt yourself or someone else? Patient reports no desire to harm self or others. Onset of symptoms was October 11, 2020. 06:52 Method Of Arrival: Ambulatory lp1 06:52 Acuity: NOAH 4 lp1 Triage Assessment: 07:00 General: Appears in no apparent distress. uncomfortable, Behavior is cooperative, bp appropriate for age, anxious. Pain: Complains of pain in back. EENT: No deficits noted. Neuro: Level of Consciousness is awake, alert, obeys commands, Oriented to Appropriate for age. Cardiovascular: No deficits noted. Respiratory: No deficits noted. GI: No signs and/or symptoms were reported involving the gastrointestinal system. : No signs and/or symptoms were reported regarding the genitourinary system. Derm: No deficits noted. Musculoskeletal: No deficits noted. Historical: - Allergies: 06:57 No Known Allergies; lp1 - Home Meds: 06:57 None [Active]; lp1 - PMHx: 06:57 None; lp1 - PSHx: 06:57 None; lp1 - Immunization history:: Adult Immunizations up to date. - Social history:: Smoking status: Patient denies any tobacco usage or history of. - Family history:: not pertinent. - Hospitalizations: : No recent hospitalization is reported. Screenin:57 Abuse screen: Denies threats or abuse. Denies injuries from another. Nutritional lp1 screening: No deficits noted. Tuberculosis screening: No symptoms or risk factors identified. Fall Risk None identified. Assessment: 06:57 General: Appears in no apparent distress. Behavior is calm, cooperative. Pain: lp1 Complains of pain in left subscapular area, right subscapular area, left mid back and right mid back Pain currently is 10 out of 10 on a pain scale. Neuro: No deficits noted. Gait is steady, Intact. Cardiovascular: No deficits noted. Respiratory: No deficits noted. GI: No signs and/or symptoms were reported involving the gastrointestinal system. : No signs and/or symptoms were reported regarding the genitourinary system. EENT: No signs and/or symptoms were reported regarding the EENT system. Derm: Skin is intact, Skin is dry, Skin is normal. Musculoskeletal: Circulation, motion, and sensation intact. 07:00 Reassessment: RECD REPORT FROM ROGER STEPHENSON. 24YO BM P/W BACK PAIN. SEEN FOR SAME 4 DAYS bp AGO AT DIFFERENT FACILITY. 08:24 Reassessment: PT D/C HOME AMBULATORY, DX WITH LOW BACK PAIN. bp Vital Signs: 06:52 BP 136 / 89; Pulse 76; Resp 16; Temp 97.8; Pulse Ox 100% on R/A; Weight 72.57 kg (R); lp1 Height 5 ft. 8 in. (172.72 cm); Pain 10/10; 08:24 BP 127 / 75; Pulse 73; Resp 17; Temp 97.9; Pulse Ox 99% ; bp 06:52 Body Mass Index 24.33 (72.57 kg, 172.72 cm) lp1 ED Course: 06:33 Patient arrived in ED. bp1 06:52 Roger Beasley, RN is Primary Nurse. lp1 06:56 Triage completed. lp1 06:56 Arm band placed on. lp1 06:57 Patient has correct armband on for positive identification. lp1 07:11 Bandar Grimm MD is Attending Physician. rn 07:32 Primary Nurse role handed off by Roger Beasley, RN bp 07:32 Bruno Madrigal, SEEMA is Primary Nurse. bp 08:24 No provider procedures requiring assistance completed. Patient did not have IV access bp during this emergency room visit. Administered Medications: No medications were administered Outcome: 08:03 Discharge ordered by . rn 08:24 Discharged to home ambulatory. bp 08:24 Condition: stable 08:24 Discharge instructions given to patient, Instructed on discharge instructions, follow up and referral plans. Demonstrated understanding of instructions, follow-up care. 08:25 Patient left the ED. bp Signatures: Bandar Grimm MD MD rn Pena, Laura RN RN lp1 Bruno Madrigal RN RN bp Sarah Bonilla bp1
--- NOTE | 2020-10-11 08:04 | EDPHYS ---
Physician Documentation [facility] Name: Luis Machado Age: 24 yrs Sex: Male : 1995 Arrival Date: 10/11/2020 Time: 06:33 Bed 5 Private MD: ED Physician Bandar Grimm HPI: 10/11 07:56 This 24 yrs old Black Male presents to ER via Ambulatory with complaints of Back Pain. rn 07:56 The patient presents with pain that is chronic, with no known mechanism of injury. The rn symptoms are located in the left low back, left mid back, right mid back and right low back. Onset: The symptoms/episode began/occurred 2 week(s) ago. The pain does not radiate. Associated signs and symptoms: Pertinent negatives: abdominal pain, chest pain, constipation, dysuria, fever, headache, hematuria, incontinence, nausea, numbness, tingling, urinary retention, vomiting, weakness. The problem was sustained from unknown cause. Modifying factors: The patient symptoms are alleviated by nothing, the patient symptoms are aggravated by any movement, bending, lifting. Severity of symptoms: At their worst the symptoms were mild, in the emergency department the symptoms are unchanged. The patient has experienced similar episodes in the past. Reports back pain for a few weeks, no trauma or fever, does physical work, has been seen at [facility] ER recently, and told muscular, not worse or better, no bowel/bladder problems, no weakness or numbness. No fever or weight loss.. Historical: - Allergies: 06:57 No Known Allergies; lp1 - Home Meds: 06:57 None [Active]; lp1 - PMHx: 06:57 None; lp1 - PSHx: 06:57 None; lp1 - Immunization history:: Adult Immunizations up to date. - Social history:: Smoking status: Patient denies any tobacco usage or history of. - Family history:: not pertinent. - Hospitalizations: : No recent hospitalization is reported. ROS: 07:56 Constitutional: Negative for fever, chills, and weight loss, Eyes: Negative for injury, rn pain, redness, and discharge, Neck: Negative for injury, pain, and swelling, Cardiovascular: Negative for chest pain, palpitations, and edema, Respiratory: Negative for shortness of breath, cough, wheezing, and pleuritic chest pain, Abdomen/GI: Negative for abdominal pain, nausea, vomiting, diarrhea, and constipation, Back: + back pain : Negative for injury, bleeding, discharge, and swelling, MS/Extremity: Negative for injury and deformity, Skin: Negative for injury, rash, and discoloration, Neuro: Negative for headache, weakness, numbness, tingling, and seizure. Exam: 07:56 Constitutional: This is a well developed, well nourished patient who is awake, alert, rn and in no acute distress. Head/Face: Normocephalic, atraumatic. Neck: Trachea midline, no thyromegaly or masses palpated, and no cervical lymphadenopathy. Supple, full range of motion without nuchal rigidity, or vertebral point tenderness. No Meningismus. Cardiovascular: Regular rate and rhythm. No pulse deficits. Respiratory: No increased work of breathing, no retractions or nasal flaring. Abdomen/GI: Soft, non-tender Skin: Warm, dry MS/ Extremity: Pulses equal, no cyanosis. Neuro: Awake and alert, GCS 15, oriented to person, place, time, and situation. Cranial nerves II-XII grossly intact. Motor strength 5/5 in all extremities. Sensory grossly intact. Cerebellar exam normal. Normal gait. Vital Signs: 06:52 BP 136 / 89; Pulse 76; Resp 16; Temp 97.8; Pulse Ox 100% on R/A; Weight 72.57 kg (R); lp1 Height 5 ft. 8 in. (172.72 cm); Pain 10/10; 08:24 BP 127 / 75; Pulse 73; Resp 17; Temp 97.9; Pulse Ox 99% ; bp 06:52 Body Mass Index 24.33 (72.57 kg, 172.72 cm) lp1 MDM: 07:11 Patient medically screened. rn 07:56 Differential diagnosis: arthritis, chronic back pain, Fatigue sprain, muscle spasm. rn Data reviewed: vital signs, nurses notes, and as a result, I will discharge patient. Post IV fluid administration reassessment for Sepsis:. Counseling: I had a detailed discussion with the patient and/or guardian regarding: the historical points, exam findings, and any diagnostic results supporting the discharge/admit diagnosis, the need for outpatient follow up, to return to the emergency department if symptoms worsen or persist or if there are any questions or concerns that arise at home. Special discussion: I discussed with the patient/guardian in detail that at this point there is no indication for admission to the hospital. It is understood, however, that if the symptoms persist or worsen the patient needs to return immediately for re-evaluation. ED course: No indication for emergent imaging, recommend ICE, rest, back brace, and given return precautions. . ED course: No signs or symptoms to indicate spinal cord problem.. Administered Medications: No medications were administered Disposition: 10/11/20 08:03 Discharged to Home. Impression: Low back pain. - Condition is Stable. - Discharge Instructions: Back Pain, Adult, Musculoskeletal Pain. - Medication Reconciliation Form, Thank You Letter, Antibiotic Education, Prescription Opioid Use, Work release form form. - Follow up: Private Physician; When: As needed; Reason: Recheck today's complaints, Re-evaluation by your physician. - Problem is an ongoing problem. - Symptoms are unchanged. Signatures: Bandar Grimm MD MD rn Pena, Laura RN RN lp1 Bruno Madrigal RN RN bp Corrections: (The following items were deleted from the chart) 08:25 08:03 10/11/2020 08:03 Discharged to Home. Impression: Low back pain. Condition is bp Stable. Forms are Medication Reconciliation Form, Thank You Letter, Antibiotic Education, Prescription Opioid Use. Follow up: Private Physician; When: As needed; Reason: Recheck today's complaints, Re-evaluation by your physician. Problem is an ongoing problem. Symptoms are unchanged. rn
[2020-10-11 08:31] VITALS: BP 127/75; TEMP 97.9; O2SAT 99
== END 2020-10-11 08:25 | disposition home or self-care (01) ==
LOC: ER 06:29
DX: M54.5 Low back pain (principal)
CPT/HCPCS: 99281

== ENCOUNTER → 2023-06-11 | Emergency (ER) | payer SELFPAY ==
[~2023-06-11] MED LIST: FAMOTIDINE 20 MG/2 ML VIAL IV ONE; MORPHINE 4 MG/ML SYR ONE; NA CHLORIDE 0.9% 1,000 ML ONE; ONDANSETRON 4 MG/2 ML VIAL ONE
--- OUTSIDE RECORDS SUMMARY | 2023-06-11 03:54 | XMS REPORT | Continuity of Care Document ---
Author Name Unknown Address [address] [facility] [address] [place] [address] [facility] thconnect Address [address] [facility] [place] [address] Care Team Providers Care Public Relations Account Executive Name Role Phone LACY TREVINO Attending Clinician Unavailable TUAN AYALA Attending Clinician Unava ilable Encounters Start Date/Time End Date/Time Encounter Type Admission Type Attending Clinicians Care Facility Care Department Encounter ID Source 2023-01-25 11:58:00 2023-01-25 12:48:00 Emergency E LACY TREVINO [facility] [id number] [facility] 2022-11-09 13:48:00 2022-11-09 14:58:00 Emergency E TUAN AYALA TRENT [facility] [id number] [facility]
[2023-06-11 04:24] LABS: Absolute Lymphocytes (CBC) 2.3 K/uL (0.7-4.9); Hematocrit 45.1 % (39.6-49.0); Lymphocytes % 23.3 % (15.3-44.8); MCV 86.2 fL (80-100); MPV 8.8 fL (7.6-11.3); Platelets 206 thou/uL (152-406); RBC Red Blood Cell Count 5.23 M/uL (4.33-5.43)
[2023-06-11 04:35] LABS: Albumin 3.8 g/dL (3.4-5.0); Bilirubin Total 0.5 mg/dL (0.2-1.0); Potassium 3.8 mEq/L (3.5-5.1); Protein, Total 7.2 g/dL (6.4-8.2)
[2023-06-11 04:50] LABS: Specific Gravity 1.019 (1.005-1.030); Urine Bacteria None Seen /HPF (<20); Urine Bilirubin NEGATIVE (Negative); Urine Blood Negative (Negative); Urine Clarity Clear (Clear); Urine Color Colorless (Yellow); Urine Glucose NEGATIVE (Negative); Urine Mucus Slight /HPF (None Seen); Urine Protein NEGATIVE (Negative); Urine RBC <5 /HPF (None Seen); Urine Urobilinogen Normal (Normal); Urine pH 6.5 (5.0-7.0)
--- NOTE | 2023-06-11 05:27 | ER ---
Nurse's Notes [facility] Name: Luis Machado Age: 27 yrs Sex: Male : 1995 Arrival Date: 06/11/2023 Time: 03:51 Bed 6 Private MD: Diagnosis: Abdominal pain, Generalized;Pain in left shoulder;Abnormal findings on diagnostic imaging of other specified body structures-thickened bladder wall Presentation: 06/11 04:08 Chief complaint: Patient states: I am having abdominal and shoulder pain that started jb4 at 0700 yesterday. I am not having any nausea, vomiting, diarrhea, or constipation. Coronavirus screen: At this time, the client does not indicate any symptoms associated with coronavirus-19. Ebola Screen: No symptoms or risks identified at this time. Initial Sepsis Screen: Does the patient meet any 2 criteria? No. Patient's initial sepsis screen is negative. Does the patient have a suspected source of infection? No. Patient's initial sepsis screen is negative. Risk Assessment: Do you want to hurt yourself or someone else? Patient reports no desire to harm self or others. Onset of symptoms was June 11, 2023. Transition of care: patient was not received from another setting of care. 04:08 Method Of Arrival: Ambulatory jb4 04:08 Acuity: NOAH 3 jb4 Historical: - Allergies: 04:10 No Known Allergies; jb4 - PMHx: 04:10 None; jb4 - PSHx: 04:10 None; jb4 - Immunization history:: Adult Immunizations up to date. - Social history:: Smoking status: Patient denies any tobacco usage or history of. Patient/guardian denies using alcohol, street drugs. - Family history:: not pertinent. Screenin:12 [facility] ED Fall Risk Assessment (Adult) History of falling in the last 3 months, rv including since admission No falls in past 3 months (0 pts). [facility] ED Fall Risk Assessment (Adult) Score/Fall Risk Level 0 - 2 = Low Risk Oriented to surroundings, Maintained a safe environment, Educated pt \T\ family on fall prevention, incl call for assistance when getting out of bed, Assessed \T\ reinforced patient's understanding of fall precautions. Abuse screen: Denies threats or abuse. Denies injuries from another. Nutritional screening: No deficits noted. On. Tuberculosis screening: No symptoms or risk factors identified. Assessment: 04:12 General: Appears in no apparent distress. Behavior is calm, cooperative. Pain: tm6 Complains of pain in abdomen Pain radiates to left arm Pain currently is 10 out of 10 on a pain scale. Quality of pain is described as aching. Neuro: Level of Consciousness is awake, alert, obeys commands, Oriented to person, place, time, situation. Cardiovascular: Capillary refill < 3 seconds Patient's skin is warm and dry. Respiratory: Airway is patent Respiratory effort is even, unlabored, Respiratory pattern is regular, symmetrical. GI: Abdomen is flat, non-distended, Bowel sounds present X 4 quads. Abd is soft and non tender X 4 quads. : No signs and/or symptoms were reported regarding the genitourinary system. EENT: No signs and/or symptoms were reported regarding the EENT system. Derm: No signs and/or symptoms reported regarding the dermatologic system. Musculoskeletal: No signs and/or symptoms reported regarding the musculoskeletal system. 05:16 Reassessment: Patient appears in no apparent distress at this time. Patient and/or tm6 family updated on plan of care and expected duration. Pain level reassessed. Patient is alert, oriented x 3, equal unlabored respirations, skin warm/dry/pink. Vital Signs: 04:08 BP 136 / 106; Pulse 76; Resp 16; Temp 97.6(TE); Pulse Ox 100% on R/A; Weight 83.91 kg jb4 (R); Height 5 ft. 8 in. (R); Pain 10/10; 04:27 BP 139 / 105; Pulse 67; Pulse Ox 100% on R/A; Pain 10/10; tm6 05:15 BP 132 / 99; Pulse 72; Resp 16; Pulse Ox 100% on R/A; tm6 04:08 Body Mass Index 28.13 (83.91 kg, 172.72 cm) jb4 04:08 Pain Scale: Adult jb4 04:27 Pain Scale: Adult tm6 ED Course: 03:56 Patient arrived in ED. gm2 03:58 Stephon Nathan MD is Attending Physician. titi 04:00 Aubrey Caceres, SEEMA is Primary Nurse. rv 04:10 Triage completed. jb4 04:10 Arm band placed on right wrist. jb4 04:12 Patient has correct armband on for positive identification. Client placed on continuous rv cardiac and pulse oximetry monitoring. NIBP monitoring applied. 04:12 Inserted saline lock: 20 gauge in right antecubital area, using aseptic technique. rv Blood collected. 04:12 No provider procedures requiring assistance completed. rv 05:05 CT Abd/Pelvis - IV Contrast Only In Process Unspecified. EDMS 05:17 US Abdomen Limited In Process Unspecified. EDMS 05:25 Ray Mera MD is Referral Physician. titi 05:33 IV discontinued, intact, bleeding controlled, No redness/swelling at site. Pressure rv dressing applied. Administered Medications: 04:28 Drug: NS 0.9% IV 1000 ml IV at 1 bolus Per protocol; 1000 mL bolus Route: IV; Rate: 1 tm6 bolus; Site: right antecubital; 05:34 Follow up: IV Status: Completed infusion; IV Intake: 1000ml rv 04:28 Drug: Famotidine IVP 20 mg IVP once; dilute with 10 mL 0.9% NaCl; give over 2 minutes tm6 Route: IVP; Site: right antecubital; 05:34 Follow up: Response: No adverse reaction rv 04:28 Drug: Ondansetron IVP 4 mg IVP once; over 2 minutes Route: IVP; Site: right antecubital;tm6 05:34 Follow up: Response: No adverse reaction rv 04:28 Drug: morphine IVP or IV 4 mg IVP once over 4 mins Route: IVP; Infused Over: 4 mins; tm6 Site: right antecubital; 05:34 Follow up: Response: No adverse reaction rv 05:33 Not Given (Patient Refused): [email or web address] grams IV at per protocol once; Given slow IV rv push per pharmacy instructions Medication: 04:12 VIS not applicable for this client. rv Intake: 05:34 IV: 1000ml; Total: 1000ml. rv Outcome: 05:26 Discharge ordered by . titi 05:33 Discharged to home ambulatory, with family, rv 05:33 Condition: good 05:33 Discharge instructions given to patient, Instructed on discharge instructions, follow up and referral plans. medication usage, Demonstrated understanding of instructions, follow-up care, medications, Prescriptions given X 4, 05:34 Patient left the ED. rv Signatures: Dispatcher [employer] EDMN Stephon Nathan MD MD cha Bryson, James, RN RN jb4 Aubrey Caceres, RN RN rv Annabella Hamilton gm2 [address] RN RN tm6
--- NOTE | 2023-06-11 05:27 | EDPHYS ---
Physician Documentation [facility] Name: Luis Machado Age: 27 yrs Sex: Male : 1995 Arrival Date: 06/11/2023 Time: 03:51 Bed 6 Private MD: ED Physician Stephon Nathan HPI: 06/11 04:20 This 27 yrs old Black Male presents to ER via Ambulatory with complaints of Abdominal titi Pain, Shoulder Pain. 04:20 The patient or guardian complains of decreased range of motion. left shoulder. Context: titi The problem was sustained at an unknown site, The patient experiences decreased range of motion, when attempts to raise arm. Modifying factors: the symptoms are alleviated by nothing. The symptoms are aggravated by movement. Associated signs and symptoms: The patient has no apparent associated signs or symptoms. Severity of symptoms: At their worst the symptoms were mild, moderate, in the emergency department the symptoms are unchanged. Historical: - Allergies: 04:10 No Known Allergies; jb4 - PMHx: 04:10 None; jb4 - PSHx: 04:10 None; jb4 - Immunization history:: Adult Immunizations up to date. - Social history:: Smoking status: Patient denies any tobacco usage or history of. Patient/guardian denies using alcohol, street drugs. - Family history:: not pertinent. ROS: 04:21 Constitutional: Negative for fever, chills, and weight loss, Eyes: Negative for injury, titi pain, redness, and discharge, ENT: Negative for injury, pain, and discharge, Neck: Negative for injury, pain, and swelling, Cardiovascular: Negative for chest pain, palpitations, and edema, Respiratory: Negative for shortness of breath, cough, wheezing, and pleuritic chest pain, Back: Negative for injury and pain, : Negative for injury, bleeding, discharge, and swelling, MS/Extremity: Negative for injury and deformity, Skin: Negative for injury, rash, and discoloration, Neuro: Negative for headache, weakness, numbness, tingling, and seizure, Psych: Negative for depression, anxiety, suicide ideation, homicidal ideation, and hallucinations, Allergy/Immunology: Negative for hives, rash, and allergies, Endocrine: Negative for neck swelling, polydipsia, polyuria, polyphagia, and marked weight changes, Hematologic/Lymphatic: Negative for swollen nodes, abnormal bleeding, and unusual bruising, 04:21 Abdomen/GI: Positive for abdominal pain, nausea and vomiting, vomiting, of the umbilical area, Exam: 04:21 Constitutional: This is a well developed, well nourished patient who is awake, alert, titi and in no acute distress. Head/Face: Normocephalic, atraumatic. Eyes: Pupils equal round and reactive to light, extra-ocular motions intact. Lids and lashes normal. Conjunctiva and sclera are non-icteric and not injected. Cornea within normal limits. Periorbital areas with no swelling, redness, or edema. ENT: Nares patent. No nasal discharge, no septal abnormalities noted. Tympanic membranes are normal and external auditory canals are clear. Oropharynx with no redness, swelling, or masses, exudates, or evidence of obstruction, uvula midline. Mucous membranes moist. Neck: Trachea midline, no thyromegaly or masses palpated, and no cervical lymphadenopathy. Supple, full range of motion without nuchal rigidity, or vertebral point tenderness. No Meningismus. Chest/axilla: Normal chest wall appearance and motion. Nontender with no deformity. No lesions are appreciated. Cardiovascular: Regular rate and rhythm with a normal S1 and S2. No gallops, murmurs, or rubs. Normal PMI, no JVD. No pulse deficits. Respiratory: Lungs have equal breath sounds bilaterally, clear to auscultation and percussion. No rales, rhonchi or wheezes noted. No increased work of breathing, no retractions or nasal flaring. Back: No spinal tenderness. No costovertebral tenderness. Full range of motion. Male : Normal genitalia with no discharge or lesions. Skin: Warm, dry with normal turgor. Normal color with no rashes, no lesions, and no evidence of cellulitis. MS/ Extremity: Pulses equal, no cyanosis. Neurovascular intact. Full, normal range of motion. Neuro: Awake and alert, GCS 15, oriented to person, place, time, and situation. Cranial nerves II-XII grossly intact. Motor strength 5/5 in all extremities. Sensory grossly intact. Cerebellar exam normal. Normal gait. Psych: Awake, alert, with orientation to person, place and time. Behavior, mood, and affect are within normal limits. 04:21 Abdomen/GI: Inspection: abdomen appears normal, Bowel sounds: normal, Palpation: mild abdominal tenderness, in the umbilical area, Indicators: Liver: no appreciated palpable abnormalities, Hernia: not appreciated, 04:37 ECG was reviewed by the Attending Physician. [facility] Vital Signs: 04:08 BP 136 / 106; Pulse 76; Resp 16; Temp 97.6(TE); Pulse Ox 100% on R/A; Weight 83.91 kg jb4 (R); Height 5 ft. 8 in. (R); Pain 10/10; 04:27 BP 139 / 105; Pulse 67; Pulse Ox 100% on R/A; Pain 10/10; tm6 05:15 BP 132 / 99; Pulse 72; Resp 16; Pulse Ox 100% on R/A; tm6 04:08 Body Mass Index 28.13 (83.91 kg, 172.72 cm) 4 04:08 Pain Scale: Adult jb4 04:27 Pain Scale: Adult tm6 MDM: 03:58 Patient medically screened. [facility] 04:22 Differential diagnosis: DJD, tendonitis, bowel obstruction, Cholelithiasis, titi diverticulitis, gastritis, Hepatitis. Data reviewed: vital signs, nurses notes, lab test result(s), EKG, radiologic studies, CT scan, ultrasound. Consideration of Admission/Observation Escalation of care including admission/observation considered. I considered the following discharge prescriptions or medication management in the emergency department Medications were administered in the Emergency Department. See MAR. Independent interpretation of the following test(s) in the Emergency Department EKG: See my EKG interpretation above. Test considered but Not performed: MRI: no mri abd. 06/11 04:05 Order name: CBC with Diff; Complete Time: 04:45 [facility] 06/11 04:05 Order name: CMP; Complete Time: 04:45 [facility] 06/11 04:05 Order name: Lipase; Complete Time: 04:45 [facility] 06/11 04:05 Order name: Urinalysis w/ reflexes; Complete Time: 05:17 [facility] 06/11 04:20 Order name: Troponin HS; Complete Time: 05:17 [facility] 06/11 04:05 Order name: CT Abd/Pelvis - IV Contrast Only [facility] 06/11 04:19 Order name: US Abdomen Limited [facility] 06/11 04:19 Order name: EKG; Complete Time: 04:19 [facility] 06/11 04:05 Order name: IV Saline Lock; Complete Time: 04:12 [facility] 06/11 04:05 Order name: Labs collected and sent; Complete Time: 04:12 [facility] 06/11 04:19 Order name: EKG - Nurse/Tech; Complete Time: 04:21 [facility] EC:37 Rate is 67 beats/min. Rhythm is regular. QRS [place] is Normal. SC interval is normal. QRS titi interval is normal. QT interval is normal. No Q waves. T waves are Normal. No ST changes noted. Clinical impression: Normal ECG, LVH, and No evidence of ischemia. Interpreted by me. Reviewed by me. Administered Medications: 04:28 Drug: NS 0.9% IV 1000 ml IV at 1 bolus Per protocol; 1000 mL bolus Route: IV; Rate: 1 tm6 bolus; Site: right antecubital; 05:34 Follow up: IV Status: Completed infusion; IV Intake: 1000ml rv 04:28 Drug: Famotidine IVP 20 mg IVP once; dilute with 10 mL 0.9% NaCl; give over 2 minutes tm6 Route: IVP; Site: right antecubital; 05:34 Follow up: Response: No adverse reaction rv 04:28 Drug: Ondansetron IVP 4 mg IVP once; over 2 minutes Route: IVP; Site: right antecubital;tm6 05:34 Follow up: Response: No adverse reaction rv 04:28 Drug: morphine IVP or IV 4 mg IVP once over 4 mins Route: IVP; Infused Over: 4 mins; tm6 Site: right antecubital; 05:34 Follow up: Response: No adverse reaction rv 05:33 Not Given (Patient Refused): rocephin1 grams IV at per protocol once; Given slow IV rv push per pharmacy instructions Disposition Summary: 06/11/23 05:26 Discharge Ordered Notes: Location: Home titi Problem: new titi Symptoms: have improved titi Condition: Stable titi Diagnosis - Abdominal pain, Generalized titi - Pain in left shoulder titi - Abnormal findings on diagnostic imaging of other specified body structures - titi thickened bladder wall Followup: titi - With: Private Physician - When: 2 - 3 days - Reason: Recheck today's complaints, Continuance of care, Re-evaluation by your physician Followup: titi - With: Ray Mera MD - When: 2 - 3 days - Reason: Recheck today's complaints, Continuance of care, Re-evaluation by your physician Discharge Instructions: - Discharge Summary Sheet titi - Abdominal Pain, Adult titi - Shoulder Pain titi - Shoulder Range of Motion Exercises titi - Shoulder Pain, [id number] titi - Abdominal Pain, Adult, [id number] [facility] Forms: - Medication Reconciliation Form [facility] - Thank You Letter titi - Antibiotic Education titi - Prescription Opioid Use titi - Patient Portal Instructions [facility] - Leadership Thank You Letter [facility] Prescriptions: - Pepcid 20 mg Oral Tablet - take 1 tablet ORAL route every 12 hours for 10 days; 20 tablet; Refills: 0, [facility] Product Selection Permitted - Zofran 4 mg Oral Tablet - take 1 tablet ORAL route every 12 hours As needed; 20 tablet; Refills: 0, [facility] Product Selection Permitted - Cipro 500 mg Oral tablet - take 1 tablet ORAL route every 12 hours for 7 days; 10 tablet; Refills: 0, [facility] Product Selection Permitted - dicyclomine 20 mg Oral tablet - take 1 tablet ORAL route 4 times per day; 28 tablet; Refills: 0, Product [facility] Selection Permitted Signatures: Dispatcher [employer] Stephon Jimenez MD MD cha Bryson, James, RN RN jb4 Merrick Lane RN RN tm6 Aubrey Caceres RN rv
[2023-06-11 05:48] VITALS: BP 132/99; TEMP 97.6; O2SAT 100
--- NOTE | 2023-06-11 07:56 | RAD REPORT ---
EXAM DESCRIPTION: CT Abdomen and Pelvis With Intravenous Contrast CLINICAL HISTORY: ABD PAIN TECHNIQUE: Axial computed tomography images of the abdomen and pelvis with intravenous contrast. S agittal and coronal reformatted images were created and reviewed. This CT exam was performed using one or more of the following dose reduction techniques: automated exposure control, adjustment of t he mA and/or kV according to patient size, and/or use of iterative reconstruction technique. COMPARISON: No relevant prior studies available. FINDINGS: Lung bases: Unremarkable. No mass. No consolidation. ABDOMEN: Liver: Unremarkable. No mass. Gallbladder and bile ducts: Unremarkable. No calcified stones. No ductal dilation. Pancreas: Unremarkable. No mass. No ductal dilation. Spleen: Unremarkable. No splenomegaly. Adrenals: Unremarkable. No mass. Kidneys and ureters: Unremarkable. No solid mass. No hydronephrosis. Stomach and bowel: Intramural fat within portions of the large bowel which can be seen in the setti ng of prior inflammation. No mucosal thickening. PELVIS: Appendix: Normal caliber appendix. No findings to suggest acute appendicitis. Bladder: Mild circumferential urinary bladder wall thickening. Reproductive: Unremarkable as visualized. ABDOMEN and PELVIS: Intraperitoneal space: Unremarkable. No free air. No significant fluid collection. Bones/joints: No acute fracture. No dislocation. Soft tissues: Unremarkable. Vasculature: Unremarkable. No abdominal aortic aneurysm. Lymph nodes: Unremarkable. No enlarged lymph nodes. IMPRESSION: Mild circumferential urinary bladder wall thickening. Please correlate clinically for cystitis. Electronically signed by: Clifton Levi MD 06/11/2023 05:18 AM SHOE PACKER Due to temporary technical issues with the PACS/Fluency reporting system, reports are being signed by the in house radiologist without review as a courtesy to ensure prompt reporting. The interpreting r adiologist is fully responsible for the content of the report.
--- NOTE | 2023-06-11 07:59 | RAD REPORT ---
EXAM DESCRIPTION: US Abdomen Limited, Gallbladder CLINICAL HISTORY: ABD PAIN TECHNIQUE: Real-time ultrasound of the right upper quadrant with image documentation. COMPARISON: Abdomen pelvis CT dated 06/11/2023 FINDINGS: Gallbladder: Unremarkable. No gallstones. Common bile duct: Unremarkable as visualized. No stones. No dilation. IMPRESSION: No sonographic evidence of cholelithiasis or acute cholecystitis. Electronically signed by: Clifton Levi MD 06/11/2023 05:26 AM TECHNOLOGY RISK INTERN Due to temporary technical issues with the PACS/Fluency reporting system, reports are being signed by the in house radiologist without review as a courtesy to ensure prompt reporting. The interpreting r adiologist is fully responsible for the content of the report.
--- NOTE | 2023-06-11 12:19 | EKG ---
Test Date: 2023-06-11 Test Time: 04:28:03 College Teacher: RV MEASUREMENT RESULTS: Intervals: Rate: 67 MO: 148 QRSD: 88 QT: 386 QTc: 407 [place]: P: 49 MO: 148 QRS: 94 T: 46 INTERPRETIVE STATEMENTS: Normal sinus rhythm Rightward axis Borderline ECG No previous ECG available for comparison Electronically Signed On 06-11-23 12:18:34 VENEER PRODUCTION MACHINE OPERATOR by Luca Benjamin
== END ==
LOC: ER 03:51
DX: R10.84 Generalized abdominal pain (principal); M25.512 Pain in left shoulder; R93.41 Abnormal radiologic findings on diagnostic imaging of renal pelvis, ureter, or bladder
CPT/HCPCS: 36415; 74177; 76705; 80053; 81001; 83690; 84484; 85025; 93005; 96361; 96374; 96375; 99284; J2405; J7030; Q9967

== ENCOUNTER 2023-11-22 02:27 | Emergency (ER) | payer SELFPAY ==
--- OUTSIDE RECORDS SUMMARY | 2023-11-22 02:31 | XMS REPORT | Continuity of Care Document ---
Author Name Unknown Address [address] [place] [address] [employer] Address [address] [place] [address] Care Team Providers Care Financial Analyst Name Role Phone Unavailable Unavailable Unavailable
[2023-11-22] MEDS ORDERED: KETOROLAC 30 MG/ML INJ ONE (03:17)
[2023-11-22] MEDS ORDERED: ACETAMINOPHEN 500 MG TAB ONE (03:17)
[2023-11-22] MEDS ORDERED: ONDANSETRON 4 MG/2 ML VIAL ONE (03:17)
[2023-11-22] MEDS ORDERED: NA CHLORIDE 0.9% 1,000 ML ONE (03:18)
[2023-11-22] MEDS ORDERED: DIPHENOX/ATROP SULF 1 TAB PO ONE (03:18)
[2023-11-22 03:57] LABS: Absolute Eosinophils 0.1 K/uL (0-0.5); Absolute Lymphocytes (CBC) 0.4 K/uL (0.7-4.9); Absolute Monocytes 0.7 K/uL (0.1-1.3); Basophils % 0.4 % (0-1.3); Eosinophils % 1.7 % (0-4.4); Hematocrit 42.4 % (39.6-49.0); Hemoglobin 14.3 g/dL (13.6-17.9); MCH 29.3 pg (27.0-35.0); MCHC 33.8 g/dL (32.0-36.0); MCV 86.7 fL (80-100); MPV 9.5 fL (7.6-11.3); Monocytes % 10.2 % (3.3-12.3); Neutrophils % 81.7 % (41.7-73.7); Platelets 192 thou/uL (152-406); RBC Red Blood Cell Count 4.89 M/uL (4.33-5.43); Red Cell Distribution Width 13.6 % (12.1-15.2)
[2023-11-22 04:21] LABS: Anion Gap 5.6 mEq/L (5.0-15.0); Potassium 3.6 mEq/L (3.5-5.1)
[2023-11-22 04:47] LABS: SARS-CoV-2 Antigen CONTROL BLUE LINE VIS/BG OK; SARS-CoV-2 Antigen Rapid Res Negative (Negative)
--- NOTE | 2023-11-22 06:16 | EDPHYS ---
Physician Documentation [facility] Name: Luis Machado Age: 27 yrs Sex: Male : 1995 Arrival Date: 11/22/2023 Time: 02:27 Bed 7 Private MD: ED Physician Chavez Shah HPI: 11/21 03:03 This 27 yrs old Black Male presents to ER via Ambulatory with complaints of Fever, sp4 CHILLS/BODY ACHES. 11/22 00:25 Patient complains of fever, chills, aches , feeling unwell. Starting 2 days ago . sp4 00:28 Patient reported associated diarrhea.. sp4 Historical: - Allergies: 11/21 02:57 No Known Allergies; lg3 - Home Meds: 02:57 None [Active]; lg3 - PMHx: 02:57 None; lg3 - PSHx: 02:57 None; lg3 - Immunization history:: Adult Immunizations up to date. - Infectious Disease History:: Denies. - Social history:: Smoking status: Patient denies any tobacco usage or history of. Patient/guardian denies using alcohol, street drugs. - Family history:: not pertinent. ROS: 11/22 00:25 Constitutional: Positive fever, chills, body aches sp4 All other systems are negative, Exam: 00:25 Constitutional: This is a well developed, well nourished patient who is awake, alert, sp4 and in no acute distress. Head/Face: Normocephalic, atraumatic. Eyes: Pupils equal round and reactive to light, extra-ocular motions intact. Lids and lashes normal. Conjunctiva and sclera are not injected. Cornea within normal limits. Periorbital areas with no swelling, redness, or edema. ENT: Nares patent. No nasal discharge, no septal abnormalities noted. Tympanic membranes are normal and external auditory canals are clear. Oropharynx with no redness, swelling, or masses, exudates, or evidence of obstruction, uvula midline. Mucous membranes moist. Neck: Trachea midline, no thyromegaly or masses palpated, and no cervical lymphadenopathy. Supple, full range of motion without nuchal rigidity, or vertebral point tenderness. Chest/axilla: Normal chest wall appearance and motion. Nontender with no deformity. No lesions are appreciated. Cardiovascular: Regular rate and rhythm with a normal S1 and S2. No gallops, murmurs, or rubs. Normal PMI, no JVD. No pulse deficits. Respiratory: Lungs have equal breath sounds bilaterally, clear to auscultation and percussion. No rales, rhonchi or wheezes noted. No increased work of breathing, no retractions or nasal flaring. Abdomen/GI: Soft, with normal bowel sounds. No distension or tympany. No guarding or rebound. No evidence of tenderness throughout. Back: No spinal tenderness. No costovertebral tenderness. Skin: Warm, dry with normal turgor. Normal color with no rashes, no lesions, and no evidence of cellulitis. MS/ Extremity: Pulses equal, no cyanosis. Neurovascular intact. Full, normal range of motion. Neuro: Awake and alert, GCS 15, oriented to person, place, time, and situation. Cranial nerves II-XII grossly intact. Motor strength 5/5 in all extremities. Sensory grossly intact. Psych: Awake, alert, with orientation to person, place and time. Behavior, mood, and affect are within normal limits Vital Signs: 11/21 02:54 BP 124 / 83; Pulse 76; Resp 16; Temp 98(O); Pulse Ox 100% on R/A; vk 04:22 BP 134 / 86; Pulse 75; Resp 18; Temp 98.5; Pulse Ox 95% ; Pain 3/10; bm8 05:39 BP 137 / 74; Pulse 72; Resp 16; Pulse Ox 97% on R/A; jb4 04:22 Pain Scale: Adult bm8 Tre Coma Score: 03:01 Eye Response: spontaneous(4). Motor Response: obeys commands(6). Verbal Response: bm8 oriented(5). Total: 15. 04:22 Eye Response: spontaneous(4). Motor Response: obeys commands(6). Verbal Response: bm8 oriented(5). Total: 15. 11/22 00:25 Eye Response: spontaneous(4). Motor Response: obeys commands(6). Verbal Response: sp4 oriented(5). Total: 15. MDM: 11/21 03:24 Patient medically screened. sp4 11/22 00:25 Differential diagnosis: viral Infection, bacterial infection, URI, bronchitis, sp4 pneumonia gastroenteritis. Data reviewed: vital signs, nurses notes, lab test result(s), CBC, electrolytes, hepatic panel. 00:28 Consideration of Admission/Observation Escalation of care including sp4 admission/observation considered. ED course: Patient feels much improved after medications. Stable for discharge home.. 11/21 03:08 Order name: BMP; Complete Time: 04:48 sp4 11/21 03:08 Order name: CBC with Diff; Complete Time: 04:48 sp4 11/21 03:08 Order name: SARS RAPID; Complete Time: 04:48 sp4 11/21 03:08 Order name: Influenza Screen (a \T\ B); Complete Time: 04:48 sp4 11/21 03:09 Order name: Saline Lock; Complete Time: 03:23 sp4 Administered Medications: 11/21 03:28 Drug: Acetaminophen PO 1000 mg PO once Route: PO; bm8 04:24 Follow up: Response: No adverse reaction bm8 03:29 Drug: Diphenoxylate-Atropine PO 2 tabs PO once Route: PO; bm8 04:25 Follow up: Response: No adverse reaction bm8 03:29 Drug: Ketorolac IVP 30 mg IVP once Route: IVP; Site: right antecubital; bm8 04:24 Follow up: Response: No adverse reaction bm8 04:24 Follow up: Response: No adverse reaction bm8 03:30 Drug: NS 0.9% IV 1000 ml IV at 1 bolus Per protocol; 1000 mL bolus Route: IV; Rate: 1 bm8 bolus; Site: right antecubital; 04:25 Follow up: Response: No adverse reaction; IV Status: Completed infusion; IV Intake: bm8 1000ml 03:30 Drug: Ondansetron IVP 4 mg IVP once; over 2 minutes Route: IVP; Site: right antecubital;bm8 04:25 Follow up: Response: No adverse reaction bm8 Disposition Summary: 11/22/23 06:16 Discharge Ordered Notes: Location: Home sp4 Problem: new sp4 Symptoms: have improved sp4 Condition: Stable sp4 Diagnosis - Acute viral illness, acute chills and bodyaches, Acute common cold sp4 Followup: sp4 - With: Private Physician - When: 7 - 10 days - Reason: Recheck today's complaints Discharge Instructions: - Discharge Summary Sheet sp4 - Fever, Adult, [id number] sp4 - Viral Illness, Adult sp4 Forms: - Work release form jb4 - Patient Portal Instructions sp4 Prescriptions: - Ibuprofen 800 mg Oral tablet - take 1 tablet ORAL route every 6 hours As needed PRN fever; 30 tablet; Refills: sp4 0, Product Selection Permitted - ondansetron 8 mg Oral Tablet,disintegrating - take 1 tablet ORAL route every 8 hours PRN nausea; 30 tablet; Refills: 0, sp4 Product Selection Permitted Signatures: Dispatcher [employer] EDIsamar Agudelo, RN RN lg3 Chavez Shah MD MD sp4 Neal Singh RN RN bm8 Corrections: (The following items were deleted from the chart) 03: 03:09 BASIC METABOLIC PANEL+C.LAB.BRZ ordered. EDMS EDMS 03: 03:09 CBC+H.LAB.BRZ ordered. EDMS EDMS 03: 03:09 SARS-COV-2 Antigen Rapid+I.LAB.BRZ ordered. EDMS EDMS 03: 03:09 Influenza Screen (A \T\ B)+BA.LAB.BRZ ordered. EDMS EDMS
--- NOTE | 2023-11-22 06:16 | ER ---
Nurse's Notes [facility] Name: Luis Machado Age: 27 yrs Sex: Male : 1995 Arrival Date: 11/22/2023 Time: 02:27 Bed 7 Private MD: Diagnosis: Acute viral illness, acute chills and bodyaches, Acute common cold Presentation: 11/21 02:57 Chief complaint: Patient states: fever, chills, body aches X2 days. Coronavirus screen: lg3 Client denies travel out of the [place] in the last 14 days. Client presents with at least one sign or symptom that may indicate coronavirus-19. Standard/surgical mask placed on the client. Ebola Screen: No symptoms or risks identified at this time. Initial Sepsis Screen: Does the patient meet any 2 criteria? No. Patient's initial sepsis screen is negative. Does the patient have a suspected source of infection? No. Patient's initial sepsis screen is negative. Risk Assessment: Do you want to hurt yourself or someone else? Patient reports no desire to harm self or others. Onset of symptoms was November 20, 2023. 02:57 Method Of Arrival: Ambulatory lg3 02:57 Acuity: NOAH 4 lg3 Triage Assessment: 02:57 General: Appears in no apparent distress. comfortable, Behavior is calm, cooperative. lg3 Pain: Complains of pain in body aches. EENT: No deficits noted. No signs and/or symptoms were reported regarding the EENT system. Neuro: No deficits noted. Contreras Agitation-Sedation Scale (RASS): 0 - Alert and Calm Level of Consciousness is awake, alert, obeys commands, Oriented to person, place, time, situation, Reports weakness. Cardiovascular: No deficits noted. Denies chest pain, shortness of breath, Capillary refill < 3 seconds Clubbing of nail beds is absent JVD is absent Patient's skin is warm and dry. Respiratory: No deficits noted. Airway is patent Respiratory effort is even, unlabored, Respiratory pattern is regular, symmetrical. GI: No deficits noted. No signs and/or symptoms were reported involving the gastrointestinal system. : No deficits noted. No signs and/or symptoms were reported regarding the genitourinary system. Derm: No deficits noted. No signs and/or symptoms reported regarding the dermatologic system. Skin is intact, is healthy with good turgor, Skin is dry, Skin is normal, Skin temperature is warm. Musculoskeletal: No deficits noted. Circulation, motion, and sensation intact. Range of motion: intact in all extremities. Historical: - Allergies: 02:57 No Known Allergies; lg3 - Home Meds: 02:57 None [Active]; lg3 - PMHx: 02:57 None; lg3 - PSHx: 02:57 None; lg3 - Immunization history:: Adult Immunizations up to date. - Infectious Disease History:: Denies. - Social history:: Smoking status: Patient denies any tobacco usage or history of. Patient/guardian denies using alcohol, street drugs. - Family history:: not pertinent. Screenin:01 [facility] ED Fall Risk Assessment (Adult) History of falling in the last 3 months, bm8 including since admission No falls in past 3 months (0 pts) Confusion or Disorientation No (0 pts) Intoxicated or Sedated No (0 pts) Impaired Gait No (0 pts) Mobility Assist Device Used No (0 pt) Altered Elimination No (0 pt) Score/Fall Risk Level 0 - 2 = Low Risk Oriented to surroundings, Maintained a safe environment, Educated pt \T\ family on fall prevention, incl call for assistance when getting out of bed, Assessed \T\ reinforced patient's understanding of fall precautions. Abuse screen: Denies threats or abuse. Nutritional screening: No deficits noted. Tuberculosis screening: No symptoms or risk factors identified. Assessment: 03:01 Reassessment: Patient appears in no apparent distress at this time. Patient and/or bm8 family updated on plan of care and expected duration. Pain level reassessed. Patient is alert, oriented x 3, equal unlabored respirations, skin warm/dry/pink. General: Appears in no apparent distress. comfortable, Behavior is calm, cooperative, appropriate for age. Pain: Complains of pain in generalized body Pain does not radiate. Pain currently is 5 out of 10 on a pain scale. Quality of pain is described as aching. Neuro: Level of Consciousness is awake, alert, obeys commands, Oriented to person, place, time, situation, Appropriate for age. Cardiovascular: Denies chest pain, shortness of breath, Heart tones S1 S2 present Capillary refill < 3 seconds Patient's skin is warm and dry. Respiratory: No deficits noted. Airway is patent Trachea midline Respiratory effort is even, unlabored, Respiratory pattern is regular, symmetrical, the patient has mild shortness of breath. GI: No signs and/or symptoms were reported involving the gastrointestinal system. : No signs and/or symptoms were reported regarding the genitourinary system. EENT: Denies nasal congestion, nasal discharge, difficulty swallowing. Derm: No signs and/or symptoms reported regarding the dermatologic system. Musculoskeletal: No signs and/or symptoms reported regarding the musculoskeletal system. 04:22 Reassessment: Patient appears in no apparent distress at this time. Patient and/or bm8 family updated on plan of care and expected duration. Pain level reassessed. Patient is alert, oriented x 3, equal unlabored respirations, skin warm/dry/pink. Patient states feeling better. Patient states symptoms have improved. Pain: Complains of pain in generalized body Pain currently is 3 out of 10 on a pain scale. 05:39 Reassessment: Patient appears in no apparent distress at this time. Patient and/or jb4 family updated on plan of care and expected duration. Pain level reassessed. Patient is alert, oriented x 3, equal unlabored respirations, skin warm/dry/pink. 06:28 Reassessment: Patient appears in no apparent distress at this time. Patient and/or jb4 family updated on plan of care and expected duration. Pain level reassessed. Patient is alert, oriented x 3, equal unlabored respirations, skin warm/dry/pink. Vital Signs: 02:54 BP 124 / 83; Pulse 76; Resp 16; Temp 98(O); Pulse Ox 100% on R/A; vk 04:22 BP 134 / 86; Pulse 75; Resp 18; Temp 98.5; Pulse Ox 95% ; Pain 3/10; bm8 05:39 BP 137 / 74; Pulse 72; Resp 16; Pulse Ox 97% on R/A; jb4 04:22 Pain Scale: Adult bm8 Tre Coma Score: 03:01 Eye Response: spontaneous(4). Motor Response: obeys commands(6). Verbal Response: bm8 oriented(5). Total: 15. 04:22 Eye Response: spontaneous(4). Motor Response: obeys commands(6). Verbal Response: bm8 oriented(5). Total: 15. 0621 00:25 Eye Response: spontaneous(4). Motor Response: obeys commands(6). Verbal Response: sp4 oriented(5). Total: 15. ED Course: 11/21 02:30 Patient arrived in ED. jj6 02:57 Triage completed. lg3 02:57 Arm band placed on right wrist. lg3 03:00 Neal Singh, RN is Primary Nurse. bm8 03:01 Patient has correct armband on for positive identification. Bed in low position. Call bm8 light in reach. Side rails up X2. Adult w/ patient. Provided Education on: post er care. Client placed on continuous cardiac and pulse oximetry monitoring. NIBP monitoring applied. Pulse ox on. NIBP on. Door closed. Visitors limited. Warm blanket given. Verbal reassurance given. 03:01 No provider procedures requiring assistance completed. bm8 03:03 Chavez Shah MD is Attending Physician. sp4 03:19 Initial lab(s) drawn, by in, sent to lab. Inserted saline lock: 20 gauge in right jb4 antecubital area, using aseptic technique. Blood collected. 03:23 Influenza Screen (a \T\ B) Sent. jb4 03:23 SARS RAPID Sent. jb4 03:23 CBC with Diff Sent. jb4 03:23 BMP Sent. jb4 06:28 IV discontinued, intact, bleeding controlled, No redness/swelling at site. Pressure jb4 dressing applied. Administered Medications: 03:28 Drug: Acetaminophen PO 1000 mg PO once Route: PO; bm8 04:24 Follow up: Response: No adverse reaction bm8 03:29 Drug: Diphenoxylate-Atropine PO 2 tabs PO once Route: PO; bm8 04:25 Follow up: Response: No adverse reaction bm8 03:29 Drug: Ketorolac IVP 30 mg IVP once Route: IVP; Site: right antecubital; bm8 04:24 Follow up: Response: No adverse reaction bm8 04:24 Follow up: Response: No adverse reaction bm8 03:30 Drug: NS 0.9% IV 1000 ml IV at 1 bolus Per protocol; 1000 mL bolus Route: IV; Rate: 1 bm8 bolus; Site: right antecubital; 04:25 Follow up: Response: No adverse reaction; IV Status: Completed infusion; IV Intake: bm8 1000ml 03:30 Drug: Ondansetron IVP 4 mg IVP once; over 2 minutes Route: IVP; Site: right antecubital;bm8 04:25 Follow up: Response: No adverse reaction bm8 Medication: 03:01 VIS not applicable for this client. bm8 Intake: 04:25 IV: 1000ml; Total: 1000ml. bm8 Outcome: 06:16 Discharge ordered by . sp4 06:28 Discharged to home ambulatory, jb4 06:28 Condition: stable 06:28 Discharge instructions given to patient, Instructed on discharge instructions, follow up and referral plans. medication usage, Demonstrated understanding of instructions, follow-up care, medications, Prescriptions given X 2, 06:29 Patient left the ED. jb4 Signatures: Kike Davila, RN RN jb4 Isamar Upton RN RN [email or web address] Jacy Terry Sergey, MD MD sp4 Alanna Schumacher Brad, RN RN bm8 Corrections: (The following items were deleted from the chart) 03:30 03:01 Patient did not have IV access during this emergency room visit. bm8 bm8
[2023-11-22 06:53] VITALS: BP 137/74; TEMP 98.5; O2SAT 97
== END 2023-11-22 06:29 | disposition home or self-care (01) ==
LOC: ER 02:27
DX: B34.9 Viral infection, unspecified (principal); J00 Acute nasopharyngitis [common cold]; M79.10 Myalgia, unspecified site; Z11.52 Encounter for screening for COVID-19
CPT/HCPCS: 36415; 80048; 85025; 87804; 87811; 96361; 96374; 96375; 99284; J2405; J7030

== ENCOUNTER 2024-03-31 11:54 | Emergency (ER) | payer SELFPAY ==
--- OUTSIDE RECORDS SUMMARY | 2024-03-31 11:56 | XMS REPORT | Continuity of Care Document ---
Author Name Unknown Address [address] [place] [address] [address] [place] [id number] [facility] thconnect Address [address] [facility]. [address] [place] [address] Care Team Providers Care Chief Of Field Operations Name Role Phone LACY TREVINO Attending Clinician Unavailable TUAN AYALA Attending Clinician Unava ilable Encounters Start Date/Time End Date/Time Encounter Type Admission Type Attending Clinicians Care Facility Care Department Encounter ID Source 2023-01-25 11:58:00 2023-01-25 12:48:00 Emergency E LACY TREVINO [facility] [id number] [facility] 2022-11-09 13:48:00 2022-11-09 14:58:00 Emergency E TUAN AYALA TRENT [facility] [id number] [facility]
--- NOTE | 2024-03-31 12:24 | EDPHYS ---
Physician Documentation [facility] Name: Luis Machado Age: 28 yrs Sex: Male : 1995 Arrival Date: 03/31/2024 Time: 11:54 Bed IW6 Private MD: ED Physician Derek Ward HPI: 03/31 12:20 This 28 yrs old Black Male presents to ER via Unassigned with complaints of Toothache. ms3 12:20 28-year-old male with no past medical history presents to the emergency department for ms3 3 days of upper right tooth pain. Patient states he has taken Tylenol and ibuprofen without relief. Patient states his pain is a 10/10. Patient denies seeing a dentist. Patient states the pain is worse with the air or cold.. Historical: - Allergies: 12:30 No Known Allergies; iw - Home Meds: 12:30 None [Active]; iw - PMHx: 12:30 None; iw - PSHx: 12:30 None; iw - Immunization history:: Adult Immunizations not up to date. - Infectious Disease History:: Denies. - Social history:: Smoking status: Patient denies any tobacco usage or history of. ROS: 12:20 Constitutional: Negative for fever, and chills. ms3 12:20 Cardiovascular: Negative for chest pain, and palpitations. Respiratory: Negative for shortness of breath, cough, wheezing, and pleuritic chest pain, Abdomen/GI: Negative for abdominal pain, nausea, vomiting, diarrhea, and constipation, Skin: Negative for injury, rash, and discoloration, 12:20 ENT: Positive for dental pain, Exam: 12:20 Constitutional: This is a well developed, well nourished patient who is awake, alert, ms3 and in no acute distress. Chest/axilla: Normal chest wall appearance and motion. Nontender with no deformity. Cardiovascular: Regular rate and rhythm with a normal S1 and S2. No gallops, murmurs, or rubs. Normal PMI, no JVD. No pulse deficits. Respiratory: Lungs have equal breath sounds bilaterally, clear to auscultation and percussion. No rales, rhonchi or wheezes noted. No increased work of breathing, no retractions or nasal flaring. Abdomen/GI: Soft, non-tender, with normal bowel sounds. No distension or tympany. No guarding or rebound. No evidence of tenderness throughout. 12:20 ENT: Dental exam: dental caries, that is severe, specifically in the upper right first molar (#3) and upper right second bicuspid (#4), Vital Signs: 12:29 BP 136 / 98; Pulse 73; Resp 16; Temp 98.4; Pulse Ox 98% ; Weight 78.93 kg; Height 5 ft. iw 8 in. ; Pain 10/10; 12:29 Body Mass Index 26.46 (78.93 kg, 172.72 cm) iw 12:29 Pain Scale: Adult iw MDM: 12:20 Differential diagnosis: dental caries, gingivitis, dental abscess. Data reviewed: and ms3 as a result, I will discharge patient. I considered the following discharge prescriptions or medication management in the emergency department Medications were administered in the Emergency Department. See MAR. Counseling: I had a detailed discussion with the patient and/or guardian regarding the historical points, exam findings, and any diagnostic results supporting the discharge/admit diagnosis, the need for outpatient follow up, to return to the emergency department if symptoms worsen or persist or if there are any questions or concerns that arise at home. Special discussion: I discussed with the patient/guardian in detail that at this point there is no indication for admission to the hospital. It is understood, however, that if the symptoms persist or worsen the patient needs to return immediately for re-evaluation. ED course: Discussed physical exam findings with patient. Patient to follow-up with Dr. Mullen in 2 to 3 days. All questions were answered. Return precautions discussed include worsening symptoms, or any other concerns. No signs for Ludewig's angina at this time.. 12:23 Medical Screening Exam initiated ms3 Administered Medications: 12:35 Drug: HYDROcodone-acetaminophen PO 5 mg-325 mg 1 tabs PO once Route: PO; iw 13:00 Follow up: Response: No adverse reaction iw Disposition Summary: 03/31/24 12:23 Discharge Ordered Notes: Location: Home ms3 Condition: Stable ms3 Diagnosis - Dental caries, unspecified ms3 - Dental pain ms3 Followup: ms3 - With: Maikel Mullen DDS - When: 2 - 3 days - Reason: Recheck today's complaints Discharge Instructions: - Discharge Summary Sheet ms3 - Dental Caries, Adult ms3 Forms: - Medication Reconciliation Form ms3 - Antibiotic Education ms3 - Prescription Opioid Use ms3 - Patient Portal Instructions ms3 - Leadership Thank You Letter ms3 Prescriptions: - penicillin V potassium 500 mg Oral tablet - take 1 tablet ORAL route every 6 hours for 7 days; 28 tablet; Refills: 0, ms3 Product Selection Permitted Signatures: Ladonna Marquez RN RN iw Derek Ward DO DO ms3
[2024-03-31] MEDS ORDERED: HYDROCODONE/APAP 5/325 MG TAB ONE (12:29)
--- NOTE | 2024-03-31 13:03 | ER ---
Nurse's Notes [facility] Name: Luis Machado Age: 28 yrs Sex: Male : 1995 Arrival Date: 03/31/2024 Time: 11:54 Bed IW6 Private MD: Diagnosis: Dental caries, unspecified;Dental pain Presentation: 03/31 12:29 Chief complaint: Patient states: top tooth pain X 2-3 days ago. Coronavirus screen: At iw this time, the client does not indicate any symptoms associated with coronavirus-19. Ebola Screen: No symptoms or risks identified at this time. Initial Sepsis Screen: Does the patient meet any 2 criteria? No. Patient's initial sepsis screen is negative. Does the patient have a suspected source of infection? No. Patient's initial sepsis screen is negative. Risk Assessment: Do you want to hurt yourself or someone else? Patient reports no desire to harm self or others. Onset of symptoms was March 27, 2024. 12:29 Method Of Arrival: Ambulatory iw 12:29 Acuity: NOAH 4 iw Triage Assessment: 12:30 General: Appears in no apparent distress. Behavior is calm. iw Historical: - Allergies: 12:30 No Known Allergies; iw - Home Meds: 12:30 None [Active]; iw - PMHx: 12:30 None; iw - PSHx: 12:30 None; iw - Immunization history:: Adult Immunizations not up to date. - Infectious Disease History:: Denies. - Social history:: Smoking status: Patient denies any tobacco usage or history of. Screenin:01 [facility] ED Fall Risk Assessment (Adult) History of falling in the last 3 months, iw including since admission No falls in past 3 months (0 pts) Confusion or Disorientation No (0 pts) Intoxicated or Sedated No (0 pts) Impaired Gait No (0 pts) Mobility Assist Device Used No (0 pt) Altered Elimination No (0 pt) Score/Fall Risk Level 0 - 2 = Low Risk Oriented to surroundings, Maintained a safe environment. Abuse screen: Denies threats or abuse. Denies injuries from another. Nutritional screening: No deficits noted. Tuberculosis screening: No symptoms or risk factors identified. Assessment: 12:30 General: Appears in no apparent distress. Behavior is calm, cooperative. Pain: iw Complains of pain in upper right second bicuspid (#4) and upper right first molar (#3). Neuro: Level of Consciousness is awake, alert, obeys commands, Oriented to person, place, time, situation. Cardiovascular: Patient's skin is warm and dry. Respiratory: Respiratory effort is even, unlabored, Respiratory pattern is regular, symmetrical. EENT: Reports pain in mouth. Derm: Skin is pink, warm \T\ dry. normal. Musculoskeletal: Range of motion: intact in all extremities. Vital Signs: 12:29 BP 136 / 98; Pulse 73; Resp 16; Temp 98.4; Pulse Ox 98% ; Weight 78.93 kg; Height 5 ft. iw 8 in. ; Pain 10/10; 12:29 Body Mass Index 26.46 (78.93 kg, 172.72 cm) iw 12:29 Pain Scale: Adult iw ED Course: 11:56 Patient arrived in ED. mr 12:03 Derek Ward DO is Attending Physician. ms3 12:23 Maikel Mullen DDS is Referral Physician. ms3 12:30 Triage completed. iw 12:30 Patient has correct armband on for positive identification. Provided Education on: . iw 12:31 Ladonna Marquez, RN is Primary Nurse. iw 12:31 Arm band placed on. iw 13:01 No provider procedures requiring assistance completed. Patient did not have IV access iw during this emergency room visit. Administered Medications: 12:35 Drug: HYDROcodone-acetaminophen PO 5 mg-325 mg 1 tabs PO once Route: PO; iw 13:00 Follow up: Response: No adverse reaction iw Medication: 12:30 VIS not applicable for this client. iw Outcome: 12:23 Discharge ordered by . ms3 13:01 Discharged to home ambulatory, iw 13:01 Condition: good 13:01 Discharge instructions given to patient, Instructed on discharge instructions, follow up and referral plans. medication usage, Demonstrated understanding of instructions, follow-up care, medications, Prescriptions given X 1, 13:02 Patient left the ED. iw Signatures: Ariadna Adrian, Reg Reg mr Ladonna Marquez, RN RN iw Derek Ward DO DO ms3
[2024-03-31 13:23] VITALS: BP 136/98; TEMP 98.4; O2SAT 98
== END 2024-03-31 13:02 | disposition home or self-care (01) ==
LOC: ER 11:54
DX: K02.9 Dental caries, unspecified (principal)
CPT/HCPCS: 99283

== ENCOUNTER 2024-04-07 12:11 | Emergency (ER) | payer SELFPAY ==
--- OUTSIDE RECORDS SUMMARY | 2024-04-07 12:13 | XMS REPORT | Continuity of Care Document ---
Author Name Unknown Address [address] [facility] [address] [place] [address] [facility] Address [address] [facility] [address] [place] [address] Care Team Providers Care Home Appliance Installer Name Role Phone Pcp, Patient Does Not Have A Primary Care Physic velma Higinio MURRAY Attending Clinician Unavailable Higinio MURRAY Attending Clinician Unavailable Higinio Peña Attending Clinician [phone] LACY TREVINO Attending Clinician Unavailable TUAN AYALA Attending Clinician Unava ilable Allergies, Adverse Reactions, Alerts Allergy Name Allergy Type Status Severity Reaction(s) Onset Date Inactive Date Treating Clinician Comments Source NO KNOWN ALLERGIE S Drug Class Active [facility] Social History Social Habit Start Date Stop Date Quantity Comments Source Sexual orientation U [facility] Sex assigned at 1995 00:00:00 1995 00:00:00 [facility] Smoking Status Start Date Stop Date Source Tobacco smoking consumption unknown [facility] Medications Ordered Medication Name Filled Medication Name Start Date Stop Date Current Medication? Ordering Clinician Indication Dosage Frequency Signature (SIG) Comments Components Source ketorolac (TORADOL) injection 30 mg 2023-06 03:00: 00 04-01 02:06 :00 No 30mg 30 mg, Intramuscu lar, ONCE, 1 dose, On Sun03/31/24 at 2200, RU [facility] ibuprofen 600 mg tablet 2023-06 00:00: 00 03-31 00:00 :00 Yes [id number] 600mg Take 1 tablet by mouth every 6 (six) hours as needed for Pain (scale 4-6). [facility] acyclovir (ZOVIRAX) 400 mg tablet 2013-06 00:00: 00 Yes 400mg Take 1 Tab by mouth 5 (five) times daily. [facility] trifluridin e (VIROPTIC) 1 % ophthalmic drops 2013-06 00:00: 00 Yes Nine times per day to right eye [facility] Vital Signs Vital Name Observation Time Observation Value Comments S nahum Systolic blood pressure 2024-04-01 05:00:00 124 mm[Hg] [facility] Diastolic blood pressure 2024-04-01 05:00:00 79 mm[Hg] [facility] Heart rate 2024-04-01 05:00:00 70 /min [facility] Body temperature 2024-04-01 05:00:00 36.89 Rasheeda [facility] Respiratory rate 2024-04-01 05:00:00 15 /min [facility] Oxygen saturation in Arterial blood by Pulse oximetry 2024-04-01 05:00:00 100 /min [facility] Body height 2024-04-01 01:13:00 172.7 cm [facility] Body weight 2024-04-01 01:13:00 79.379 kg [facility] BMI 2024-04-01 01:13:00 26.61 kg/m2 [facility] Encounters Start Date/Time End Date/Time Encounter Type Admission Type Attending Clinicians Care Facility Care Department Encounter ID Source 2024-03-31 20:16:00 2024-04-01 00:30:00 Emergency X Higinio MURRAY K [facility] ERT [id number] [facility] 2024-03-31 20:16:00 2024-04-01 00:30:00 Emergency Higinio Murray [facility] [id number] [facility] 2023-01-25 11:58:00 2023-01-25 12:48:[address]ACY TREVINO [facility] [id number] [facility] 2022-11-09 13:48:00 2022-11-09 14:58:00 Emergency E TUAN AYALA [facility] [id number] [facility] Notes Date/Time Note Provider Source 2024-04-01 00:00:00 Pt discharged with diagnosis of dental infection. Printed and verbal instructions reviewed with and given to pt. Prescriptions given x 1. Pt verbalized understanding of teaching, medications, and recommended follow-up. Denies questions or concerns at this time. Pt ambulatory at discharge. Appears in no apparent distress. No ataxia noted. Augustina Ortiz RN [facility] 2024-03-31 20:09:51 Patient arrived ambulatory for tooth pain x3 days, top right, denies fever. Went to received hydrocodone, script for penicillin today, taken 1 dose. Pt states he cannot take the pain anymore. Hx none Isabell Menjivar RN [facility]
--- NOTE | 2024-04-07 12:35 | EDPHYS ---
Physician Documentation [facility] Name: Luis Machado Age: 28 yrs Sex: Male : 1995 Arrival Date: 04/07/2024 Time: 12:11 Bed DX3 Private MD: ED Physician Bandar Grimm HPI: 04/07 12:33 This 28 yrs old Black Male presents to ER via Unassigned with complaints of Sore Throat.rn 12:33 The patient presents with sore throat. The patient describes throat pain as raw. Onset: rn The symptoms/episode began/occurred 6 day(s) ago. Severity of symptoms: At their worst the symptoms were mild, in the emergency department the symptoms are unchanged. Modifying factors: The symptoms are alleviated by nothing, the symptoms are aggravated by swallowing. The patient has not experienced similar symptoms in the past. Patient reports sore throat for 6 days, not improving. Hurts to swallow. No shortness of breath. No vomiting or diarrhea. Reports subjective fever. No known sick contacts. Able to eat. P.o. intake good.. Historical: - Allergies: 12:37 No Known Allergies; iw - Home Meds: 12:37 None [Active]; iw - PMHx: 12:37 None; iw - Family history:: not pertinent. - Social history:: Smoking status: . - Hospitalizations: : No recent hospitalization is reported. ROS: 12:33 Constitutional: Positive for subjective fever and chills ENT: Positive for sore throat rn Neck: Negative for injury, pain, and swelling, Cardiovascular: Negative for chest pain, palpitations, and edema, Respiratory: Negative for shortness of breath, cough, wheezing, and pleuritic chest pain, Abdomen/GI: Negative for abdominal pain, nausea, vomiting, diarrhea, and constipation, Exam: 12:33 Constitutional: This is a well developed, well nourished patient who is awake, alert, rn and in no acute distress. ENT: Pharyngeal erythema without exudate. No tonsillar hypertrophy. No evidence of peritonsillar abscess. Tender bilateral cervical lymphadenopathy. No meningismus. Cardiovascular: Regular rate and rhythm. No pulse deficits. Respiratory: No increased work of breathing, no retractions or nasal flaring. Vital Signs: 12:37 BP 118 / 75; Pulse 86; Resp 16; Temp 98.1; Pulse Ox 99% on R/A; MDM: 12:32 Medical Screening Exam initiated rn 12:33 Differential diagnosis: group A strep tonsillitis, laryngitis, pharyngitis, viral rn syndrome. Data reviewed: vital signs, nurses notes, and as a result, I will discharge patient. Counseling: I had a detailed discussion with the patient and/or guardian regarding the historical points, exam findings, and any diagnostic results supporting the discharge/admit diagnosis, the need for outpatient follow up, to return to the emergency department if symptoms worsen or persist or if there are any questions or concerns that arise at home. Special discussion: I discussed with the patient/guardian in detail that at this point there is no indication for admission to the hospital. It is understood, however, that if the symptoms persist or worsen the patient needs to return immediately for re-evaluation. Administered Medications: No medications were administered Disposition Summary: 04/07/24 12:35 Discharge Ordered Notes: Location: Home rn Problem: new rn Symptoms: have improved rn Condition: Stable rn Diagnosis - Acute pharyngitis, unspecified rn Followup: rn - With: Private Physician - When: As needed - Reason: Recheck today's complaints, Re-evaluation by your physician Discharge Instructions: - Discharge Summary Sheet rn - Pharyngitis rn - Sore Throat rn Forms: - Medication Reconciliation Form rn - Antibiotic government employee - Prescription Opioid Use rn - Patient Portal Instructions rn - Leadership Thank You Letter rn Prescriptions: - Augmentin 875-125 mg Oral Tablet - take 1 tablet ORAL route every 12 hours for 10 days; 20 tablet; Refills: 0, rn Product Selection Permitted Signatures: Dispatcher [employer] Ladonna Elias RN RN Bandar Schneider MD MD leadership program intern: (The following items were deleted from the chart) 12:15 12:15 Group A Streptococcus Rapid Sc+BA.LAB.BRZ ordered. EDMS EDMS 12:15 12:15 Influenza Screen (A \T\ B)+BA.LAB.BRZ ordered. EDMS EDMS
--- NOTE | 2024-04-07 12:43 | ER ---
Nurse's Notes [facility] Name: Luis Machado Age: 28 yrs Sex: Male : 1995 Arrival Date: 04/07/2024 Time: 12:11 Bed DX3 Private MD: Diagnosis: Acute pharyngitis, unspecified Presentation: 04/07 12:37 Chief complaint: Patient states: sore throat X 6 days. Coronavirus screen: Client iw presents with at least one sign or symptom that may indicate coronavirus-19. Ebola Screen: No symptoms or risks identified at this time. Initial Sepsis Screen: Does the patient meet any 2 criteria? No. Patient's initial sepsis screen is negative. Does the patient have a suspected source of infection? No. Patient's initial sepsis screen is negative. Risk Assessment: Do you want to hurt yourself or someone else? Patient reports no desire to harm self or others. 12:37 Method Of Arrival: Ambulatory iw 12:37 Acuity: NOAH 4 iw Historical: - Allergies: 12:37 No Known Allergies; iw - Home Meds: 12:37 None [Active]; iw - PMHx: 12:37 None; iw - Family history:: not pertinent. - Social history:: Smoking status: . - Hospitalizations: : No recent hospitalization is reported. Vital Signs: 12:37 BP 118 / 75; Pulse 86; Resp 16; Temp 98.1; Pulse Ox 99% on R/A; iw ED Course: 12:12 Patient arrived in ED. ra3 12:14 Bandar Grimm MD is Attending Physician. rn 12:34 Ladonna Marquez RN is Primary Nurse. iw 12:37 Triage completed. iw 12:37 Patient placed in a hallway bed. iw Administered Medications: No medications were administered Outcome: 12:35 Discharge ordered by . rn 12:43 Patient left the ED. iw Signatures: Ladonna Marquez RN RN Bandar Grimm MD MD rn Alva, Ruby ra3
[2024-04-07 12:49] VITALS: BP 118/75; TEMP 98.1; O2SAT 99
== END 2024-04-07 12:43 | disposition home or self-care (01) ==
LOC: ER 12:11
DX: J02.9 Acute pharyngitis, unspecified (principal)
CPT/HCPCS: 99281